=== PATIENT | female | born 1945 | race Caucasian/White ===

== ENCOUNTER 2017-07-06 09:15 | Inpatient (IN) | payer MEDICARE ==
[2017-07-06 09:08] VITALS: BMI 36.6
--- NOTE | 2017-07-07 12:53 | HP ---
DATE OF ADMISSION: 07/12/2017 HISTORY OF PRESENT ILLNESS: The patient is a 71-year-old female with a long history of progressive degenerative arthritis of both knees, right greater than left, unresponsive to conservative treatmen t including rest, restriction of activities, anti-inflammatory medications, cortisone injections, an d also viscosupplementation. The pain is now interfering with day-to-day activities, especially the right knee. PAST MEDICAL HISTORY: The patient has a history of hypertension, reflux, and pain management. She has obtained medical clearance from Dr. Giles and also cardiac clearance from Dr. Staton. PRESENT MEDICATIONS: Include hydrocodone, Flexeril, omeprazole, Pravachol, gabapentin, and multivit amins. ALLERGIES: She is allergic to PENICILLIN. FAMILY HISTORY/SOCIAL HISTORY/REVIEW OF SYSTEMS: Essentially otherwise unremarkable. She lives by herself. PHYSICAL EXAMINATION: GENERAL: Reveals a healthy, elderly, heavyset female. HEENT: Unremarkable. NECK: Supple. CHEST: Clear. HEART: Regular rate and rhythm. ABDOMEN: Soft, nontender. PELVIC/RECTAL/BREAST: Exams are deferred. EXTREMITIES: Pertinent findings related to her knees. Examination of the right knee reveals mild v algus. There is tenderness and crepitus over the lateral joint line. Range of motion is 3-115 degr ees. There is crepitus with range of motion. There is no instability. No venous varicosities. Ne urovascular exam is intact. Pulses are 2+. Examination of her left knee reveals mild varus. There is tenderness and crepitus over the medial joint line. Range of motion is 0-120 degrees with no in stability. Neurovascular exam is intact. LABORATORY AND X-RAY FINDINGS: X-rays of both knees reveal bone on bone collapse laterally in the r ight knee and bone on bone collapse medially in the left knee. IMPRESSION: Degenerative arthritis, both knees, right symptomatic more than left. PLAN: Right total knee replacement. She may ultimately require a stage left total knee replacement . The nature of the surgery, length of recovery, and potential complications such as infection, los s of motion, incomplete relief, delayed wound healing, neurovascular injury, thromboembolic phenomen on, and the need for revision have been discussed in detail. The patient is a [employer] and refuses all transfusion of blood products.
[2017-07-12] MEDS ORDERED: Tranexamic Acid 1,000 MG/100 ML BAG ONE ×2 (06:07→09:37)
[2017-07-12] MEDS ORDERED: Levofloxacin 500 mg/D5W 100 ml Premix Bag ONE (06:07)
[2017-07-12] MEDS ORDERED: Vancomycin HCl 1.5 GM in Sodium Chloride 0.9% 250 ML 300 ML IVPB SCH ×2 (06:15→19:00)
[2017-07-12] MEDS ORDERED: Ropivacaine 0.2% HCl/PF 20 ML ONE ×2 (06:22→06:23)
[2017-07-12] MEDS ORDERED: Midazolam HCl 2 mg/2 ml Vial ONE (06:22)
[2017-07-12] MEDS ORDERED: Fentanyl 100 MCG/2 ML VIAL ONE ×4 (06:22→10:01)
[2017-07-12] MEDS ORDERED: Bupivacaine 0.25% HCL 30 ML VIAL ONE (06:45)
[2017-07-12] MEDS ORDERED: Lidocaine 1% w/Epinephrine 1:200K 30 ML VIAL ONE (06:45)
[2017-07-12] MEDS ORDERED: HYDROcodone/Acetaminophen 10/325 mg Tablet PO PRN ×4 (07:20→12:21)
[2017-07-12] MEDS ORDERED: Ropivacaine HCl/PF 250 ML in Premix Bag 1 BAG NERVE BLCK SCH (07:20)
[2017-07-12] MEDS ORDERED: Zolpidem Tartrate 5 MG TAB PO PRN ×3 (07:20→12:21)
[2017-07-12] MEDS ORDERED: Promethazine HCl 25 MG/ML VIAL IM PRN ×3 (07:20→10:10)
[2017-07-12] MEDS ORDERED: traMADol HCl 50 MG TAB PO PRN ×3 (07:20→12:21)
[2017-07-12] MEDS ORDERED: Ondansetron HCl/PF 4 MG/2 ML Vial IVP PRN ×4 (07:20→12:21)
[2017-07-12] MEDS ORDERED: Fentanyl 100 MCG/2 ML VIAL IV PRN (07:22)
[2017-07-12] MEDS ORDERED: PHENYLEPHRINE-NS 100 MCG/ML 10 ML SYRINGE ONE (07:36)
[2017-07-12] MEDS ORDERED: Propofol 200 MG/20 ML VIAL ONE (07:36)
[2017-07-12] MEDS ORDERED: Ondansetron HCl/PF 4 MG/2 ML Vial ONE (07:36)
[2017-07-12] MEDS ORDERED: Ketorolac Tromethamine 30 MG/ML VIAL ONE (07:36)
[2017-07-12] MEDS ORDERED: Lidocaine 2% MPF 10 ML AMP (For Epidural Use) ONE (07:36)
[2017-07-12] MEDS ORDERED: Promethazine HCl 25 MG/ML VIAL SLOW IVP PRN ×2 (07:49→12:21)
[2017-07-12] MEDS ORDERED: Tranexamic Acid 1,000 MG in Sodium Chloride 0.9% 100 ML IVPB SCH ×2 (09:30→12:21)
[2017-07-12] MEDS ORDERED: diphenhydrAMINE 50 MG/ML VIAL IM PRN (10:10)
[2017-07-12] MEDS ORDERED: Naloxone HCl 0.4 mg/ml Vial IV PRN (10:10)
[2017-07-12] MEDS ORDERED: Fentanyl 5000 MCG/250 ML CADD IVPB PRN (10:10)
[2017-07-12] MEDS ORDERED: diphenhydrAMINE 50 MG/ML VIAL IVP PRN (10:10)
[2017-07-12] MEDS ORDERED: diphenhydrAMINE 25 MG CAP PO PRN ×2 (10:10→12:21)
[2017-07-12] MEDS ORDERED: Communication Order-Pharmacy FS SCH (10:15)
--- NOTE | 2017-07-12 11:31 | RAD ---
RIGHT KNEE 2 VIEWS: Date: 07/12/17 HISTORY: Total knee replacement, postop exam. FINDINGS/IMPRESSION: Recent postop changes of total knee arthroplasty in good position and alignment. Soft tissue air is present. POS: BURT
--- NOTE | 2017-07-12 11:51 | OP ---
DATE OF PROCEDURE: 07/12/2017 SURGEON: Gui Pearce M.D. SVP RESEARCH AND STRATEGIC ANALYSIS: Anjel Altamirano PA-C. ANESTHESIA: General plus femoral and sciatic nerve blocks. PREOPERATIVE DIAGNOSIS: Degenerative arthritis, right knee. POSTOPERATIVE DIAGNOSIS: Degenerative arthritis, right knee. PROCEDURES: Right total knee replacement with cemented Triathlon components with computer assisted navigation. NARRATIVE REPORT: After satisfactory anesthesia was induced in supine position, sequential compress ion device was placed on the non-operative leg throughout the procedure. The right leg was prepped and draped in the routine manner. Right leg was elevated, exsanguinated with an Esmarch bandage, an d the tourniquet inflated to 300 mmHg. A gently curved medial parapatellar incision was made and ca rried down through subcutaneous tissues, and bleeding points controlled with cautery. Medial parapa tellar arthrotomy was performed. Patella was dislocated laterally and portions of the fat pad were excised for exposure. There was marked degenerative arthritis of the knee, especially laterally wit h large areas of exposed bone. Meniscal remnants and osteophytes were removed. Using the Vericantess navigation system and the appropriate guides, the distal femoral and proximal tibial articula r surfaces were excised with an oscillating saw to accept the trial components. The popliteus tendo n was released to relax lateral structures because of the valgus deformity. It was felt that #4 fem oral component and #5 tibial baseplate with 9 mm CS plastic insert gave appropriate size, fit, stabi lity, and correction of the preoperative deformity. The patellar articular surface was excised to a ccept an all plastic A29 patellar component. There was good patellar tracking. The trial component s were removed. The posterior capsule and subcutaneous tissues were injected with mixture of 0.25% plain Marcaine and 1% lidocaine with epinephrine. The knee was copiously irrigated with pulsatile l avage and bony surfaces thoroughly cleaned and dried. The permanent components were then cemented i n a single stage using 1 package of cement premixed with 1 gram of tobramycin powder. Excess cement was removed. There was again good fit and stability of the components. The knee was again copious ly irrigated. The medial retinaculum and quadriceps mechanism was closed with interrupted #2 Vicryl and a running #2 Quill. Subcutaneous tissues were closed with running 0 Quill suture and the skin closed with running subcuticular 3-0 Monoderm and SurgiSeal skin adhesive. A sterile bulky compress bertha dressing was applied and the tourniquet deflated after 73 minutes. The foot promptly pinked up. Sequential compression device was applied to the operated leg. She was awakened and taken to [facility] very room in stable condition. There were no apparent intraoperative complications. The estimated blood loss was less than 100 mL.
[2017-07-12] MEDS ORDERED: Acetaminophen 325 MG TAB PO PRN (12:21)
[2017-07-12] MEDS ORDERED: Fentanyl 100 MCG/2 ML VIAL SLOW IVP PRN ×2 (12:21)
[2017-07-12] MEDS: Ketorolac Tromethamine 30 MG/ML VIAL IVP SCH ×3 (13:04→23:54)
[2017-07-12] MEDS ORDERED: Ketorolac Tromethamine 30 MG/ML VIAL IVP SCH (14:00)
--- NOTE | 2017-07-12 14:06 | PDOC.PN ---
- Subjective Encounter Start Date: 07/12/17 Encounter Start Time: 14:05 Patient seen and examined. Previous records reviewed. Consult for med mngt. Pain controlled. - Objective MAR Reviewed: Yes Vital Signs & Weight: Weight Weight 220 lb Result Diagrams: 07/13/17 04:42 EKG Reviewed by me: Yes (SR) Phys Exam - Physical Examination Constitutional: NAD Respiratory: no wheezing, no rhonchi Cardiovascular: RRR, no rub Gastrointestinal: soft, non-tender, positive bowel sounds Musculoskeletal: no edema Neurological: non-focal, moves all 4 limbs Psychiatric: A&O x 3 Dx/Plan (1) HLD (hyperlipidemia) Code(s): E78.5 - HYPERLIPIDEMIA, UNSPECIFIED Status: Chronic (2) CKD (chronic kidney disease) stage 2, GFR 60-89 ml/min Code(s): N18.2 - CHRONIC KIDNEY DISEASE, STAGE 2 (MILD) Status: Chronic (3) Obesity (BMI 30-39.9) Code(s): E66.9 - OBESITY, UNSPECIFIED Status: Chronic (4) Rheumatoid arthritis Code(s): M06.9 - RHEUMATOID ARTHRITIS, UNSPECIFIED Status: Chronic (5) HTN (hypertension) Code(s): I10 - ESSENTIAL (PRIMARY) HYPERTENSION Status: Chronic (6) GERD (gastroesophageal reflux disease) Code(s): K21.9 - GASTRO-ESOPHAGEAL REFLUX DISEASE WITHOUT ESOPHAGITIS Status: Chronic - Plan cont current plan of care, DVT proph w/SCDs (per joint protocol with [facility]) * Cont current meds as below including Gabapentin/Statins and PPI * Cont to monitor * Will follow. Thank you for this consultation. Full code. Makes her own decisions with the help of her family. Review of Systems - Review of Systems Respiratory: negative: Cough, Dry, Shortness of Breath, Hemoptysis, SOB with Excertion, Pleuritic Pain, Sputum, Wheezing Cardiovascular: negative: Chest Pain, Palpitations, Orthopnea, Paroxysmal Noc. Dyspnea, Edema, Light Headedness, Other Gastrointestinal: negative: Nausea, Vomiting, Abdominal Pain, Diarrhea, Constipation, Melena, Hematochezia, Other Genitourinary: negative: Dysuria, Frequency, Incontinence, Hematuria, Retention , Other - Medications/Allergies Allergies/Adverse Reactions: Allergies Allergy/AdvReac Type Severity Reaction Status Date / Time Penicillins Allergy Verified 07/06/17 09:09 Medications: Current Medications Acetaminophen (Tylenol) 650 mg PO Q4H PRN PRN Reason: TAMAYO/ T > 101F; Mild Pain (1-3) Hydrocodone Bitart/Acetaminophen ([place] 10/325) 1 tab PO Q4H PRN PRN Reason: Moderate Pain (4-6) Hydrocodone Bitart/Acetaminophen ([place] 10/325) 2 tab PO Q4H PRN PRN Reason: Severe Pain (7-10) Aspirin (Aspirin Chewable) 81 mg PO BID [facility] Cholecalciferol (Vitamin D3) 1,000 units PO DAILY [facility] Diphenhydramine HCl (Benadryl) 25 mg IVP Q3H PRN PRN Reason: Itching Diphenhydramine HCl (Benadryl) 25 mg PO Q3H PRN PRN Reason: Itching Diphenhydramine HCl (Benadryl) 25 mg IM Q3H PRN PRN Reason: Itching Diphenhydramine HCl (Benadryl) 25 mg PO Q6H PRN PRN Reason: Itching Fentanyl (Fentanyl Cadd) 0 mcg IVPB INF PRN PRN Reason: Pain Fentanyl (Sublimaze) 50 mcg SLOW IVP Q30MIN PRN PRN Reason: Moderate Pain (4-6) Fentanyl (Sublimaze) 100 mcg SLOW IVP Q1H PRN PRN Reason: Severe Pain (7-10) Ferrous Gluconate (Fergon) 324 mg PO BID [facility] Fish Oil (Fish Oil) 1,000 mg PO DAILY [facility] Folic Acid (Folvite) 1 mg PO DAILY [facility] Gabapentin (Neurontin) 600 mg PO TID [facility] Ropivacaine 250 ml/ Device 250 mls @ 10 mls/hr NERVE BLCK INF [facility] Levofloxacin 500 mg/ Device 100 mls @ 100 mls/hr IVPB 0800 [facility] Stop: 07/13/17 10:00 Sodium Chloride (Normal Saline 0.9%) 1,000 mls @ 100 mls/hr IV .Q10H [facility] Vancomycin HCl 1.5 gm/ Sodium (Chloride) 300 mls @ 200 mls/hr IVPB 1900 [facility] Stop: 07/12/17 21:00 Iron/Minerals/Multivitamins (Theragran M) 1 tab PO DAILY [facility] Ketorolac Tromethamine (Toradol) 15 mg IVP Q6HR [facility] Stop: 07/14/17 06:01 Last Admin: 07/12/17 13:04 Dose: 15 mg Ketorolac Tromethamine (Toradol) 15 mg IVP Q8HR [facility] Stop: 07/14/17 14:01 Naloxone HCl (Narcan) 0.2 mg IV Q5MIN PRN PRN Reason: Opiate Reversal Ondansetron HCl (Zofran) 4 mg IVP Q6H PRN PRN Reason: Nausea/Vomiting Last Admin: 07/12/17 13:05 Dose: 4 mg Ondansetron HCl (Zofran) 4 mg IVP Q6H PRN PRN Reason: Nausea/Vomiting Ondansetron HCl (Zofran) 4 mg IVP Q6H PRN PRN Reason: Nausea/Vomiting Pantoprazole Sodium (Protonix) 40 mg PO DAILY [facility] Promethazine HCl (Phenergan) 12.5 mg IM Q4H PRN PRN Reason: Nausea Promethazine HCl (Phenergan) 12.5 mg IM Q4H PRN PRN Reason: Nausea/Vomiting Promethazine HCl (Phenergan) 12.5 mg SLOW IVP Q4H PRN PRN Reason: Nausea/Vomiting Senna/Docusate Sodium (Senokot S) 2 tab PO BID [facility] Sodium Chloride (Flush - Normal Saline) 10 ml IVF PRN PRN PRN Reason: Saline Flush Tramadol HCl (Ultram) 100 mg PO Q6H PRN PRN Reason: Mild Pain (1-3) Zolpidem Tartrate (Ambien) 5 mg PO HSPRN PRN PRN Reason: Insomnia Zolpidem Tartrate (Ambien) 5 mg PO HSPRN PRN PRN Reason: Insomnia
[2017-07-12] MEDS: Sodium Chloride 0.9% 1,000 ML IV SCH ×2 (14:11→22:20)
[2017-07-12] MEDS ORDERED: Ropivacaine 0.5% HCl/PF (150 MG/30 ML VIAL) ONE (14:14)
[2017-07-12] MEDS: Gabapentin 300 MG CAP PO SCH ×2 (16:41→20:25)
[2017-07-13 05:40] LABS: Red Blood Cell (RBC) Count 3.67 mill/uL (4.20-5.40); White Blood Cell (WBC) Count 7.9 thou/uL (4.8-10.8)
[2017-07-13] MEDS: Ketorolac Tromethamine 30 MG/ML VIAL IVP SCH ×4 (06:16→23:59)
[2017-07-13] MEDS: Sodium Chloride 0.9% 1,000 ML IV SCH ×2 (08:30→20:30)
[2017-07-13] MEDS: Folic Acid 1 MG TAB PO SCH (08:50)
[2017-07-13] MEDS: Ferrous Gluconate 324 MG TAB PO SCH ×2 (08:51→20:29)
[2017-07-13] MEDS: Fish Oil 1,000 MG CAP PO SCH (08:52)
[2017-07-13] MEDS: Senokot S 8.6-50 MG TAB PO SCH ×2 (08:53→20:29)
[2017-07-13] MEDS: Gabapentin 300 MG CAP PO SCH ×3 (08:54→20:29)
[2017-07-13] MEDS: Pravastatin Sodium 20 MG TAB PO SCH (08:55)
[2017-07-13] MEDS: Multivitamin W/ Minerals 1 TAB PO SCH ×2 (09:39→09:40)
--- NOTE | 2017-07-13 11:21 | PDOC.PN ---
- Subjective Encounter Start Date: 07/13/17 Encounter Start Time: 07:30 -: old records requested/rev Patient seen and examined. No new complaints. No overnight events - Objective MAR Reviewed: Yes Vital Signs & Weight: Vital Signs (12 hours) Temp Pulse Resp BP Pulse Ox 07/13/17 08:40 100.0 F H 106 H 20 115/70 97 07/13/17 04:22 104 H 22 H 100 07/12/17 23:51 99.7 F H 116 H 18 148/68 H 91 L Weight Weight 220 lb I&O: 07/12/17 07/13/17 07/14/17 06:59 06:59 06:59 Intake Total 1959 Output Total 2049 Balance -90 Result Diagrams: 07/13/17 04:42 Phys Exam - Physical Examination Constitutional: NAD HEENT: PERRLA, moist MMs, sclera anicteric Neck: no JVD, supple Respiratory: no wheezing, no rales, no rhonchi Cardiovascular: RRR, no significant murmur, no rub Gastrointestinal: soft, non-tender, no distention, positive bowel sounds Musculoskeletal: no edema, pulses present right knee with dressing Neurological: non-focal, normal sensation Psychiatric: normal affect, A&O x 3 Skin: no rash, normal turgor Dx/Plan (1) Postoperative anemia due to acute blood loss Code(s): D62 - ACUTE POSTHEMORRHAGIC ANEMIA Status: Acute (2) Status post total right knee replacement Code(s): Z96.651 - PRESENCE OF RIGHT ARTIFICIAL KNEE JOINT Status: Acute (3) CKD (chronic kidney disease) stage 2, GFR 60-89 ml/min Code(s): N18.2 - CHRONIC KIDNEY DISEASE, STAGE 2 (MILD) Status: Chronic (4) GERD (gastroesophageal reflux disease) Code(s): K21.9 - GASTRO-ESOPHAGEAL REFLUX DISEASE WITHOUT ESOPHAGITIS Status: Chronic (5) HLD (hyperlipidemia) Code(s): E78.5 - HYPERLIPIDEMIA, UNSPECIFIED Status: Chronic (6) HTN (hypertension) Code(s): I10 - ESSENTIAL (PRIMARY) HYPERTENSION Status: Chronic (7) Obesity (BMI 30-39.9) Code(s): E66.9 - OBESITY, UNSPECIFIED Status: Chronic (8) Rheumatoid arthritis Code(s): M06.9 - RHEUMATOID ARTHRITIS, UNSPECIFIED Status: Chronic - Plan cont current plan of care, PT/OT, hospice social worker * continue aspirin for DVT prophylaxis * continue protonix for GI prophylaxis * continue iron * nerve block as per anesthesia * pain controlled with current pain meds * home medication reconciled * medication reviewed as below * symptomatic treatment * PT/OT as per [facility] protocol * code status- Full code. Review of Systems - Review of Systems ENT: negative: Ear Pain, Ear Discharge, Nose Pain, Nose Discharge, Nose Congestion, Mouth Pain, Mouth Swelling, Throat Pain, Throat Swelling, Other Respiratory: negative: Cough, Dry, Shortness of Breath, Hemoptysis, SOB with Excertion, Pleuritic Pain, Sputum, Wheezing Cardiovascular: negative: Chest Pain, Palpitations, Orthopnea, Paroxysmal Noc. Dyspnea, Edema, Light Headedness, Other Gastrointestinal: negative: Nausea, Vomiting, Abdominal Pain, Diarrhea, Constipation, Melena, Hematochezia, Other Genitourinary: negative: Dysuria, Frequency, Incontinence, Hematuria, Retention , Other Musculoskeletal: negative: Neck Pain, Shoulder Pain, Arm Pain, Back Pain, Hand Pain, Leg Pain, Foot Pain, Other Skin: negative: Rash, Lesions, Wing, Bruising, Other - Medications/Allergies Allergies/Adverse Reactions: Allergies Allergy/AdvReac Type Severity Reaction Status Date / Time Penicillins Allergy Verified 07/06/17 09:09 Medications: Current Medications Acetaminophen (Tylenol) 650 mg PO Q4H PRN PRN Reason: TAMAYO/ T > 101F; Mild Pain (1-3) Hydrocodone Bitart/Acetaminophen ([place] 10/325) 1 tab PO Q4H PRN PRN Reason: Moderate Pain (4-6) Hydrocodone Bitart/Acetaminophen ([place] 10/325) 2 tab PO Q4H PRN PRN Reason: Severe Pain (7-10) Aspirin (Aspirin Chewable) 81 mg PO BID [facility] Last Admin: 07/13/17 08:56 Dose: 81 mg Cholecalciferol (Vitamin D3) 1,000 units PO DAILY [facility] Last Admin: 07/13/17 08:54 Dose: 1,000 units Diphenhydramine HCl (Benadryl) 25 mg IVP Q3H PRN PRN Reason: Itching Diphenhydramine HCl (Benadryl) 25 mg PO Q3H PRN PRN Reason: Itching Diphenhydramine HCl (Benadryl) 25 mg IM Q3H PRN PRN Reason: Itching Diphenhydramine HCl (Benadryl) 25 mg PO Q6H PRN PRN Reason: Itching Fentanyl (Fentanyl Cadd) 0 mcg IVPB INF PRN PRN Reason: Pain Fentanyl (Sublimaze) 50 mcg SLOW IVP Q30MIN PRN PRN Reason: Moderate Pain (4-6) Fentanyl (Sublimaze) 100 mcg SLOW IVP Q1H PRN PRN Reason: Severe Pain (7-10) Ferrous Gluconate (Fergon) 324 mg PO BID [facility] Last Admin: 07/13/17 08:51 Dose: 324 mg Fish Oil (Fish Oil) 1,000 mg PO DAILY [facility] Last Admin: 07/13/17 08:52 Dose: 1,000 mg Folic Acid (Folvite) 1 mg PO DAILY [facility] Last Admin: 07/13/17 08:50 Dose: 1 mg Gabapentin (Neurontin) 600 mg PO TID [facility] Last Admin: 07/13/17 08:54 Dose: 600 mg Ropivacaine 250 ml/ Device 250 mls @ 10 mls/hr NERVE BLCK INF [facility] Last Admin: 07/13/17 10:46 Dose: 250 mls Sodium Chloride (Normal Saline 0.9%) 1,000 mls @ 100 mls/hr IV .Q10H [facility] Last Admin: 07/13/17 08:30 Dose: 1,000 mls Iron/Minerals/Multivitamins (Theragran M) 1 tab PO DAILY [facility] Last Admin: 07/13/17 09:40 Dose: 1 tab Ketorolac Tromethamine (Toradol) 15 mg IVP Q6HR [facility] Stop: 07/14/17 06:01 Last Admin: 07/13/17 06:16 Dose: 15 mg Naloxone HCl (Narcan) 0.2 mg IV Q5MIN PRN PRN Reason: Opiate Reversal Ondansetron HCl (Zofran) 4 mg IVP Q6H PRN PRN Reason: Nausea/Vomiting Pantoprazole Sodium (Protonix) 40 mg PO DAILY [facility] Last Admin: 07/13/17 08:56 Dose: 40 mg Pravastatin Sodium (Pravachol) 10 mg PO DAILY [facility] Last Admin: 07/13/17 08:55 Dose: 10 mg Promethazine HCl (Phenergan) 12.5 mg IM Q4H PRN PRN Reason: Nausea/Vomiting Promethazine HCl (Phenergan) 12.5 mg SLOW IVP Q4H PRN PRN Reason: Nausea/Vomiting Senna/Docusate Sodium (Senokot S) 2 tab PO BID [facility] Last Admin: 07/13/17 08:53 Dose: 2 tab Sodium Chloride (Flush - Normal Saline) 10 ml IVF PRN PRN PRN Reason: Saline Flush Tramadol HCl (Ultram) 100 mg PO Q6H PRN PRN Reason: Mild Pain (1-3) Zolpidem Tartrate (Ambien) 5 mg PO HSPRN PRN PRN Reason: Insomnia
[2017-07-14] MEDS: Ketorolac Tromethamine 30 MG/ML VIAL IVP SCH (05:07)
[2017-07-14] MEDS: Sodium Chloride 0.9% 1,000 ML IV SCH (05:08)
--- NOTE | 2017-07-14 07:43 | PDOC.PN ---
- Subjective Encounter Start Date: 07/14/17 Encounter Start Time: 07:41 Patient seen and examined. No new complaints. No overnight events - Objective Resuscitation Status: Resuscitation Status FULL:Full Resuscitation MAR Reviewed: Yes Vital Signs & Weight: Vital Signs (12 hours) Temp Pulse Resp BP BP Pulse Ox 07/14/17 04:00 98.7 F 96 16 140/82 98 07/14/17 00:00 98.8 F 104 H 14 133/67 133/67 100 07/13/17 20:25 99.2 F 99 16 143/72 H 93 L Weight Admit Weight 220 lb Weight 220 lb I&O: 07/13/17 07/14/17 07/15/17 06:59 06:59 06:59 Intake Total 19590 Output Total 20490 Balance -90 -865 Result Diagrams: 07/13/17 04:42 Phys Exam - Physical Examination Constitutional: NAD HEENT: PERRLA, moist MMs, sclera anicteric Neck: no JVD, supple Respiratory: no wheezing, no rales, no rhonchi Cardiovascular: RRR, no significant murmur, no rub Gastrointestinal: soft, non-tender, no distention, positive bowel sounds Musculoskeletal: no edema, pulses present right knee with dressing Neurological: non-focal, normal sensation Psychiatric: normal affect, A&O x 3 Skin: no rash, normal turgor Dx/Plan (1) Postoperative anemia due to acute blood loss Code(s): D62 - ACUTE POSTHEMORRHAGIC ANEMIA Status: Acute (2) Status post total right knee replacement Code(s): Z96.651 - PRESENCE OF RIGHT ARTIFICIAL KNEE JOINT Status: Acute (3) CKD (chronic kidney disease) stage 2, GFR 60-89 ml/min Code(s): N18.2 - CHRONIC KIDNEY DISEASE, STAGE 2 (MILD) Status: Chronic (4) GERD (gastroesophageal reflux disease) Code(s): K21.9 - GASTRO-ESOPHAGEAL REFLUX DISEASE WITHOUT ESOPHAGITIS Status: Chronic (5) HLD (hyperlipidemia) Code(s): E78.5 - HYPERLIPIDEMIA, UNSPECIFIED Status: Chronic (6) HTN (hypertension) Code(s): I10 - ESSENTIAL (PRIMARY) HYPERTENSION Status: Chronic (7) Obesity (BMI 30-39.9) Code(s): E66.9 - OBESITY, UNSPECIFIED Status: Chronic (8) Rheumatoid arthritis Code(s): M06.9 - RHEUMATOID ARTHRITIS, UNSPECIFIED Status: Chronic - Plan cont current plan of care, PT/OT, director social * continue aspirin for DVT prophylaxis * continue protonix for GI prophylaxis * continue iron * nerve block as per anesthesia * pain controlled with current pain meds * medication reviewed as below * symptomatic treatment * PT/OT as per [facility] protocol * expecting discharge later today Review of Systems - Review of Systems ENT: negative: Ear Pain, Ear Discharge, Nose Pain, Nose Discharge, Nose Congestion, Mouth Pain, Mouth Swelling, Throat Pain, Throat Swelling, Other Respiratory: negative: Cough, Dry, Shortness of Breath, Hemoptysis, SOB with Excertion, Pleuritic Pain, Sputum, Wheezing Cardiovascular: negative: Chest Pain, Palpitations, Orthopnea, Paroxysmal Noc. Dyspnea, Edema, Light Headedness, Other Gastrointestinal: negative: Nausea, Vomiting, Abdominal Pain, Diarrhea, Constipation, Melena, Hematochezia, Other Genitourinary: negative: Dysuria, Frequency, Incontinence, Hematuria, Retention , Other Musculoskeletal: negative: Neck Pain, Shoulder Pain, Arm Pain, Back Pain, Hand Pain, Leg Pain, Foot Pain, Other - Medications/Allergies Allergies/Adverse Reactions: Allergies Allergy/AdvReac Type Severity Reaction Status Date / Time Penicillins Allergy Verified 07/06/17 09:09 Medications: Current Medications Acetaminophen (Tylenol) 650 mg PO Q4H PRN PRN Reason: TAMAYO/ T > 101F; Mild Pain (1-3) Last Admin: 07/13/17 12:32 Dose: 650 mg Hydrocodone Bitart/Acetaminophen ([place] 10/325) 1 tab PO Q4H PRN PRN Reason: Moderate Pain (4-6) Hydrocodone Bitart/Acetaminophen ([place] 10/325) 2 tab PO Q4H PRN PRN Reason: Severe Pain (7-10) Aspirin (Aspirin Chewable) 81 mg PO BID [facility] Last Admin: 07/13/17 20:29 Dose: 81 mg Cholecalciferol (Vitamin D3) 1,000 units PO DAILY [facility] Last Admin: 07/13/17 08:54 Dose: 1,000 units Diphenhydramine HCl (Benadryl) 25 mg IVP Q3H PRN PRN Reason: Itching Diphenhydramine HCl (Benadryl) 25 mg PO Q3H PRN PRN Reason: Itching Diphenhydramine HCl (Benadryl) 25 mg IM Q3H PRN PRN Reason: Itching Diphenhydramine HCl (Benadryl) 25 mg PO Q6H PRN PRN Reason: Itching Fentanyl (Fentanyl Cadd) 0 mcg IVPB INF PRN PRN Reason: Pain Fentanyl (Sublimaze) 50 mcg SLOW IVP Q30MIN PRN PRN Reason: Moderate Pain (4-6) Fentanyl (Sublimaze) 100 mcg SLOW IVP Q1H PRN PRN Reason: Severe Pain (7-10) Ferrous Gluconate (Fergon) 324 mg PO BID [facility] Last Admin: 07/13/17 20:29 Dose: 324 mg Fish Oil (Fish Oil) 1,000 mg PO DAILY [facility] Last Admin: 07/13/17 08:52 Dose: 1,000 mg Folic Acid (Folvite) 1 mg PO DAILY [facility] Last Admin: 07/13/17 08:50 Dose: 1 mg Gabapentin (Neurontin) 600 mg PO TID [facility] Last Admin: 07/13/17 20:29 Dose: 600 mg Ropivacaine 250 ml/ Device 250 mls @ 10 mls/hr NERVE BLCK INF [facility] Last Admin: 07/13/17 10:46 Dose: 250 mls Sodium Chloride (Normal Saline 0.9%) 1,000 mls @ 100 mls/hr IV .Q10H [facility] Last Admin: 07/14/17 05:08 Dose: Not Given Iron/Minerals/Multivitamins (Theragran M) 1 tab PO DAILY [facility] Last Admin: 07/13/17 09:40 Dose: 1 tab Naloxone HCl (Narcan) 0.2 mg IV Q5MIN PRN PRN Reason: Opiate Reversal Ondansetron HCl (Zofran) 4 mg IVP Q6H PRN PRN Reason: Nausea/Vomiting Pantoprazole Sodium (Protonix) 40 mg PO DAILY [facility] Last Admin: 07/13/17 08:56 Dose: 40 mg Pravastatin Sodium (Pravachol) 10 mg PO DAILY [facility] Last Admin: 07/13/17 08:55 Dose: 10 mg Promethazine HCl (Phenergan) 12.5 mg IM Q4H PRN PRN Reason: Nausea/Vomiting Promethazine HCl (Phenergan) 12.5 mg SLOW IVP Q4H PRN PRN Reason: Nausea/Vomiting Senna/Docusate Sodium (Senokot S) 2 tab PO BID [facility] Last Admin: 07/13/17 20:29 Dose: 2 tab Sodium Chloride (Flush - Normal Saline) 10 ml IVF PRN PRN PRN Reason: Saline Flush Tramadol HCl (Ultram) 100 mg PO Q6H PRN PRN Reason: Mild Pain (1-3) Zolpidem Tartrate (Ambien) 5 mg PO HSPRN PRN PRN Reason: Insomnia
[2017-07-14] MEDS: Gabapentin 300 MG CAP PO SCH (08:05)
[2017-07-14] MEDS: Senokot S 8.6-50 MG TAB PO SCH (08:05)
[2017-07-14] MEDS: Pravastatin Sodium 20 MG TAB PO SCH (08:06)
[2017-07-14] MEDS: Ferrous Gluconate 324 MG TAB PO SCH (08:08)
[2017-07-14] MEDS: Multivitamin W/ Minerals 1 TAB PO SCH (08:09)
[2017-07-14] MEDS: Folic Acid 1 MG TAB PO SCH (08:10)
[2017-07-14 08:32] VITALS: BP 138/78; TEMP 99
--- NOTE | 2017-07-14 10:21 | DIS ---
DATE OF ADMISSION: 07/12/2017 DATE OF DISCHARGE: 07/14/2017 PRIMARY CARE PHYSICIAN: Dr. LUIS ABAD. DISCHARGE DISPOSITION: Home. PRIMARY DISCHARGE DIAGNOSES: Postoperative anemia due to acute blood loss, status post right total k nee replacement. SECONDARY DISCHARGE DIAGNOSES: Chronic kidney disease stage 2, gastroesophageal reflux disease, dysl ipidemia, hypertension, obesity with BMI 36, rheumatoid arthritis. PRIMARY PROCEDURE/OPERATION: Right total knee replacement. RADIOLOGICAL INVESTIGATION: Knee x-ray. SIGNIFICANT LABORATORY DATA: Hemoglobin 10.9. DISCHARGE MEDICATIONS: Benadryl 25 mg 1 or 2 tablets p.o. b.i.d. p.r.n., vitamin E 400 units p.o. da [place], coenzyme Q10 100 mg p.o. daily, pravastatin 10 mg p.o. daily, omeprazole 40 mg p.o. daily, multi vitamin 1 tablet p.o. daily, [place] 10 one tablet q.6 hours p.r.n., garlic one tablet daily, gabapenti n 600 mg t.i.d., folic acid 1 mg p.o. daily, fish oil 1000 mg p.o. daily, Flexeril 10 mg p.o. at [facility], vitamin D3 1000 units p.o. daily, aspirin 81 mg p.o. b.i.d. for DVT prophylaxis, ferrous glucona te 324 mg p.o. b.i.d. CONTRAINDICATIONS: None. CODE STATUS: FULL CODE. INPATIENT CONSULTANTS: Dr. Pearce was primary while in hospital. [facility] team was consulted for medica l comanagement. ALLERGIES: PENICILLIN. DISCHARGE PLAN: Post hospital, the patient will follow up with Dr. Pearce on 07/27/2017 at 10:00 a.m. The patient will make appointment with primary care physician in 1 week. HOSPITAL COURSE: A 71-year-old female with above-mentioned medical problem who was admitted by Dr. Donna schwartz for elective admission for right total knee replacement, which was done on 07/12/2017. [facility], [facility] team was consulted for medical comanagement. The patient's medica l problems remained stable. The patient did very well while in hospital per [facility] protoco l treatment. The patient is planned for discharge today. She was given aspirin for DVT prophylaxis. Her pain was controlled with oral pain medications. She had mild postoperative blood loss anemia t hat remained stable. This patient is Jehovah witness. The patient is advised to take iron supplementation after discharge . The patient is seen and examined at bedside today. Please see my progress note from today for furthe r details. We will sign off.
[2017-07-14] MEDS ORDERED: Insulin Regular 300 UNITS/3 ML VIAL IVP SCH (12:45)
[2017-07-14] MEDS: Fish Oil 1,000 MG CAP PO SCH (13:05)
== END 2017-07-14 10:00 | disposition swing bed (61) | DRG 470 ==
LOC: SURG A 07-12 05:28 → SJJU 07-12 10:59
PROVIDERS: ADMIT Orthopaedic Surgery; ATTEND Orthopaedic Surgery
PROC: 0SRC0J9 Replacement of Right Knee Joint with Synthetic Substitute, Cemented, Open Approach (ICD-10-PCS; principal; 2017-07-12)
PROC: 3E0T3BZ Introduction of Anesthetic Agent into Peripheral Nerves and Plexi, Percutaneous Approach (ICD-10-PCS; 2017-07-12)
DX: M17.0 Bilateral primary osteoarthritis of knee (principal); D62 Acute posthemorrhagic anemia; M06.9 Rheumatoid arthritis, unspecified; I12.9 Hypertensive chronic kidney disease with stage 1 through stage 4 chronic kidney disease, or unspecified chronic kidney disease; Z88.0 Allergy status to penicillin; N18.2 Chronic kidney disease, stage 2 (mild); K21.9 Gastro-esophageal reflux disease without esophagitis; E78.5 Hyperlipidemia, unspecified; E66.9 Obesity, unspecified; Z68.36 Body mass index [BMI] 36.0-36.9, adult
CPT/HCPCS: 36415; 85027; C1713; C1776; G8978-GP-CK; G8979-GP-CJ; J1885; J1956; J2001; J2250; J2405; J2704; J2795; J3010; J3370; J7050; S0020

== ENCOUNTER 2018-01-27 12:11 | Outpatient (CLI) | payer MEDICARE ==
[2018-01-27 13:13] LABS: #Eosinphils 0.3 thou/uL (0.0-0.7); #Lymphocytes 2.2 thou/uL (1.20-3.40); #Monocytes 0.6 thou/uL (0.11-0.59); #Neutrophils 5.6 thou/uL (1.40-6.50); %Basophils 0.3 % (0.0-1.0); %Eosinophils 3.3 % (0.0-10.0); %Lymphocytes 24.9 % (21.0-51.0); %Monocytes 7.2 % (0.0-10.0); %Neutrophils 64.4 % (42.0-75.0); Hemoglobin 11.8 g/dL (12.0-16.0); Mean Corpuscular HGB CONC 33.3 g/dL (32.0-36.0); Mean Corpuscular Hemoglobin 30.3 pg (27.0-31.0); Mean Corpuscular Volume 91.1 fl (81.0-99.0); Mean Platelet Volume 5.4 fL (7.4-10.4); Platelet Count 227 thou/uL (130-400); RBC Distribution Width 12.6 % (11.5-14.5); Red Blood Cell (RBC) Count 3.91 mill/uL (4.20-5.40); White Blood Cell (WBC) Count 8.7 thou/uL (4.8-10.8)
[2018-01-27 13:20] LABS: INR-International Normal Ratio 1.1; Prothrombin Time 14.1 SEC (12.0-14.7)
[2018-01-27 13:38] LABS: Anion Gap 12 mmol/L (10-20); BUN (Urea Nitrogen) 19 mg/dL (9.8-20.1); Calc. Creatinine Clearance 0 mL/min (70-130); Calcium 9.2 mg/dL (7.8-10.44); Carbon Dioxide 25 mmol/L (23-31); Chloride 101 mmol/L (98-107); Estimated GFR-MDRD 59; Glucose 93 mg/dL (83-110); Potassium 4.6 mmol/L (3.5-5.1); Sodium 133 mmol/L (136-145)
[2018-01-27 13:48] LABS: Bilirubin Negative (Negative); Blood, Urine Negative (Negative); Clarity CLEAR (Clear); Glucose, Urine (Dipstick) Negative (Negative); Leukocyte Trace (Negative); Nitrite Negative (Negative); Protein, Urine (Dipstick) Negative (Neg-Trace); Specific Gravity, Urine 1.013 (1.002-1.036); Urobilinogen 0.2 mg/dL (0.2-1.0)
[2018-01-27 14:13] LABS: Bacteria/HPF None Seen HPF (None Seen); Hyaline Casts/LPF 0-3 HYALINE CAST LPF (0-3 Hyaline); Pathc Cast-AUWi Flag 0.87 (0-2.49); RBC/HPF 0-3 HPF (0-3); Squamous Epithelial 0-3 HPF (0-3); WBC/HPF 0-3 HPF (0-3)
== END 2018-01-27 12:12 | disposition home or self-care (01) ==
LOC: LABBT 12:11
PROVIDERS: ATTEND Orthopaedic Surgery
DX: Z01.818 Encounter for other preprocedural examination (principal); M17.12 Unilateral primary osteoarthritis, left knee
CPT/HCPCS: 80048; 81001; 85025; 85610; 87081; 87086; 93005; 93010

== ENCOUNTER 2018-02-07 06:09 | Inpatient (IN) | payer MEDICARE ==
[2018-01-27 13:01] VITALS: BMI 35.7
--- NOTE | 2018-02-03 19:32 | HP ---
HISTORY OF PRESENT ILLNESS: The patient is a 72-year-old female with a long history of progressive d egenerative arthritis of both knees, unresponsive to conservative treatment including rest, restricti on of activities, anti-inflammatory medications, and several injections. She underwent right total k nee replacement in 06/2017 with good results, but continues to have progressive problems with the lef t knee. PAST MEDICAL HISTORY: The patient is, otherwise, in good health. 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 CURRENT MEDICATIONS: Include multivitamins, Pravachol, Prilosec, gabapentin, Flexeril, [place] 10. ALLERGIES: She is allergic to PENICILLIN. The patient is a Worship and absolutely refuses any type of blood transfusion or blood prod ucts under any condition. FAMILY HISTORY, SOCIAL HISTORY, AND REVIEW OF SYSTEMS: Otherwise unremarkable. PHYSICAL EXAMINATION: GENERAL: Reveals a healthy, elderly, heavyset female. HEENT: Unremarkable. NECK: Supple. CHEST: Clear. HEART: Regular rate and rhythm. ABDOMEN: Soft, nontender. PELVIC/RECTAL/BREAST: Exams are deferred. EXTREMITIES: Pertinent findings related to the left knee, there is . There is mild varus. The re is tenderness and crepitus over the medial joint line. Range of motion is 5-120 degrees. There i s no instability. Neurovascular exam is intact. Pulses are 1+. There is a left antalgic gait. LABORATORY AND X-RAY FINDINGS: X-rays of the left knee reveal [id number] collapse medially. IMPRESSION: 1. Degenerative arthritis, left knee. 2. Status post right total knee replacement. 3. History of hypertension. 4. History of reflux. 5. Worship. PLAN: Left total knee replacement. The nature of the surgery, length of recovery, and potential com plications such as infection, loss of motion, incomplete relief, delayed wound healing, neurovascular injury, thromboembolic phenomenon, and need for revision have been discussed in detail.
[2018-02-07] MEDS ORDERED: Sodium Chloride 0.9% 100 ML ONE (07:21)
[2018-02-07] MEDS ORDERED: Levofloxacin 500 mg/D5W 100 ml Premix Bag ONE (07:21)
[2018-02-07] MEDS ORDERED: Midazolam HCl 2 mg/2 ml Vial ONE (07:25)
[2018-02-07] MEDS ORDERED: Ropivacaine 0.5% HCl/PF (150 MG/30 ML VIAL) ONE (07:26)
[2018-02-07] MEDS ORDERED: Fentanyl 100 MCG/2 ML VIAL ONE ×3 (07:26→12:20)
[2018-02-07] MEDS ORDERED: Bupivacaine 0.25% HCL 30 ML VIAL ONE (07:27)
[2018-02-07] MEDS ORDERED: Vancomycin HCl 1.5 GM in Sodium Chloride 0.9% 250 ML 300 ML IVPB SCH ×2 (07:30→20:00)
[2018-02-07] MEDS ORDERED: Ondansetron HCl/PF 4 MG/2 ML Vial IVP PRN ×3 (08:38→12:23)
[2018-02-07] MEDS ORDERED: Promethazine HCl 25 MG/ML VIAL IM PRN ×2 (08:38→10:32)
[2018-02-07] MEDS ORDERED: Zolpidem Tartrate 5 MG TAB PO PRN ×2 (08:38→12:23)
[2018-02-07] MEDS ORDERED: traMADol HCl 50 MG TAB PO PRN ×2 (08:38)
[2018-02-07] MEDS ORDERED: HYDROcodone/Acetaminophen 10/325 mg Tablet PO PRN ×2 (08:38)
[2018-02-07] MEDS ORDERED: Fentanyl 100 MCG/2 ML VIAL IV PRN (08:40)
[2018-02-07] MEDS ORDERED: Bupivacaine/Epinephrine 0.25% 30 ML VIAL ONE (10:21)
[2018-02-07] MEDS ORDERED: Promethazine HCl 25 MG/ML VIAL SLOW IVP PRN ×2 (10:32→12:23)
[2018-02-07] MEDS ORDERED: Tranexamic Acid 1,000 MG in Sodium Chloride 0.9% 100 ML IVPB SCH ×2 (12:00→12:23)
[2018-02-07] MEDS ORDERED: Ketorolac Tromethamine 30 MG/ML VIAL IVP SCH (12:00)
[2018-02-07] MEDS ORDERED: Acetaminophen 325 MG TAB PO PRN (12:23)
[2018-02-07] MEDS ORDERED: Fentanyl 100 MCG/2 ML VIAL SLOW IVP PRN ×2 (12:23)
[2018-02-07] MEDS ORDERED: diphenhydrAMINE 25 MG CAP PO PRN (12:23)
[2018-02-07] MEDS ORDERED: PROPOFOL 200 MG/20 ML VIAL ONE (12:24)
[2018-02-07] MEDS ORDERED: Lidocaine 1% PF 5 ML VIAL ONE (12:24)
[2018-02-07] MEDS ORDERED: Ondansetron HCl/PF 4 MG/2 ML Vial ONE (12:24)
--- NOTE | 2018-02-07 12:32 | OP ---
DATE OF PROCEDURE: 02/07/2018 SURGEON: Gui Pearce M.D. ASSOCIATE SOFTWARE APPLICATION ENGINEER: ARNIE Stafford. ANESTHESIA: General plus femoral site nerve blocks. PREOPERATIVE DIAGNOSIS: Degenerative arthritis, left knee. POSTOPERATIVE DIAGNOSIS: Degenerative arthritis, left knee. PROCEDURES PERFORMED: Left total knee replacement, computer-assisted navigation with cemented Stryke r Triathlon components (#4 femoral component, #4 universal tibial baseplate with 13 mm CS plastic ins ert, and A29 all plastic patellar component). NARRATIVE REPORT: After satisfactory anesthesia was induced in supine position, sequential compressi on device was placed on the non-operative leg throughout the procedure. The left leg was prepped and draped in routine manner and then elevated, exsanguinated with an Esmarch bandage. Tourniquet was i nflated to 300 mmHg. A gently curved medial parapatellar incision was made and carried down to subcu taneous tissues. Bleeding points controlled with cautery. Medial parapatellar arthrotomy performed. Patella dislocated laterally and portions of the fat pad excised for exposure. There was marked de generative arthritis of the knee, especially medially, with large areas of exposed bone. Meniscal re mnants and osteophytes were removed. Using the NEBOTRADE pinless navigation system and the appropriate guides, the distal femoral and proximal tibial articular surfaces were excised with an oscillating s aw to accept the trial components. It was felt that #4 femoral component, #4 tibial baseplate with 1 3 mm CS plastic insert gave appropriate size, fit, stability, and correction of the preoperative defo rmity. The patellar articular surface was excised to accept an all plastic A29 patellar component. There was good patellar tracking. The trial components were removed. The knee was copiously irrigat ed with pulsatile lavage and the bony surfaces thoroughly cleaned and dried. The permanent component s were then cemented in a single stage using 1 package of cement premixed with 1 gram of tobramycin p owder. Excess cement was removed. There was again good fit and stability of the components. The kn ee was then copiously irrigated. Skin was infiltrated with 30 mL of 0.25% Marcaine with epinephrine. The medial retinaculum and quadriceps mechanism was closed with interrupted #2-0 Vicryl and a runni ng #2 Quill. Subcutaneous tissues closed with running 0 Quill suture and the skin closed with runnin g subcuticular 3-0 Monoderm and SurgiSeal skin adhesive. Sterile bulky compressive dressing was appl ied and the tourniquet deflated after 75 minutes. The foot promptly pinked up and sequential jitendra re device was placed on the operated leg. She was awakened, taken to recovery room in stable condi tion. There were no apparent intraoperative complications. The estimated blood loss was less than 1 00 mL.
--- NOTE | 2018-02-07 14:01 | RAD ---
LEFT KNEE TWO VIEWS: History: Post op total knee. Comparison: 07-12-17 FINDINGS: Satisfactory appearance of left total knee arthroplasty. Expected post-operative gas and edema. IMPRESSION: Satisfactory appearance left total knee arthroplasty. POS: [facility]
[2018-02-07] MEDS: Escitalopram Oxalate 10 mg Tablet PO SCH (14:35)
[2018-02-07] MEDS: Fish Oil 1,000 MG CAP PO SCH (14:35)
[2018-02-07] MEDS: Ferrous Gluconate 324 MG TAB PO SCH ×2 (14:35→20:43)
[2018-02-07] MEDS: Aspirin 81 mg Enteric Coated Tablet PO SCH ×2 (14:35→20:43)
[2018-02-07] MEDS: Folic Acid 1 MG TAB PO SCH (14:36)
[2018-02-07] MEDS: Gabapentin 300 MG CAP PO SCH ×3 (14:36→20:44)
[2018-02-07] MEDS: Multivitamin W/ Minerals 1 TAB PO SCH (14:36)
[2018-02-07] MEDS: Pravastatin Sodium 20 MG TAB PO SCH (14:36)
[2018-02-07] MEDS: Senokot S 8.6-50 MG TAB PO SCH ×2 (14:37→20:45)
[2018-02-07] MEDS: Ubidecarenone 50 MG CAP PO SCH (14:37)
[2018-02-07] MEDS: Sodium Chloride 0.9% 1,000 ML IV SCH ×2 (14:46→23:01)
[2018-02-07] MEDS: Ketorolac Tromethamine 30 MG/ML VIAL IVP SCH ×2 (14:47→21:23)
[2018-02-07] MEDS: HYDROcodone/Acetaminophen 10/325 mg Tablet PO PRN ×2 (17:06→21:22)
--- NOTE | 2018-02-07 17:09 | CON ---
DATE OF CONSULTATION: 02/07/2018 CONSULTING PHYSICIAN: Gui Pearce M.D. REASON FOR CONSULTATION: Medical management. HISTORY OF PRESENT ILLNESS: This patient is a 72-year-old female with a history of degenerative join t disease requiring prior right total knee replacements. The patient has been failing conservative m easures and ultimately requiring left knee replacement as well. She is now postop left knee and only complains of some discomfort in that knee. PAST MEDICAL HISTORY: Notable for hypertension, gastroesophageal reflux disorder, some depression an d peripheral neuropathy. She also has the chronic degenerative joint disease and some musculoskeleta l pain involving the left shoulder which she believes is likely rotator cuff. PAST SURGICAL HISTORY: Notable for tonsillectomy, total hysterectomy, ORIF of the right ankle and le ft wrist and right knee replacement. She also had a cholecystectomy. SOCIAL HISTORY: Patient denies tobacco, alcohol, or drug use. FAMILY HISTORY: Father has a history of coronary artery disease, hypertension, and cancer. Mother h ad a history of cancer as well which was lung cancer. REVIEW OF SYSTEMS: Negative Other than symptoms associated with her degenerative joint and musculosk eletal issues. She also continues to be symptomatic with her peripheral neuropathy but otherwise a 1 0-point review of systems was negative. ALLERGIES: PENICILLIN. HOME MEDICATIONS: Vitamin D3 3000 units p.o. daily, Flexeril 10 mg at bedtime, Benadryl 1 p.o. daily p.r.n., Lexapro 10 mg p.o. daily, fish oil 1000 mg p.o. daily, folic acid 1 mg every day, gabapentin 600 mg p.o. t.i.d., garlic 1000 mg every day, [place] 10/325 one p.o. t.i.d. p.r.n., iron plus 1 table t p.o. daily, melatonin 5 mg p.o. at bedtime, multivitamin 1 p.o. daily, naproxen 440 mg p.o. b.i.d., omeprazole 40 mg daily, pravastatin 10 mg every day, Super vitamin B1 p.o. at bedtime, trazodone 50 mg at bedtime, CoQ10 100 mg p.o. daily, vitamin E 2 tablets p.o. daily 200 unit caplets. PHYSICAL EXAMINATION: GENERAL APPEARANCE: Age appropriate female. She is awake and alert. She is in no acute distress, p leasant, cooperative. HEENT: Pupils are equal, reactive to light and accommodation. She has no OP lesions. Oral mucosa i s pink and moist. NECK: Supple and symmetric without lymphadenopathy or JVD. Trachea is midline. CARDIOVASCULAR: Regular rate and rhythm with no murmurs, gallops or rubs. LUNGS: Clear to auscultation bilaterally with no wheezes or rales. ABDOMEN: Soft, nontender, nondistended with positive bowel sounds. No masses, no organomegaly. SKIN: Warm and dry without significant edema. She does have some hypoesthesia in the left foot area . LABORATORY DATA: EKG from 01/27/2018 shows sinus rhythm with some left axis deviation and complete r ight bundle branch block. Outpatient labs from 01/27/2018, white count 8.7, hemoglobin 11.8, platele ts 227. Coags normal. Chemistries are normal. Urinalysis normal. Urine culture negative. MRSA sc reen negative. IMPRESSION AND PLAN: 1. Degenerative joint disease requiring total joint replacement of the left knee. The patient is po stop now and doing well. We will defer to Orthopedic Surgery for further management of that. Of not e, patient is Religion and does not want blood products. 2. Hyperlipidemia. The patient will continue with her usual outpatient course of pravastatin. 3. Peripheral neuropathy. The patient may resume her gabapentin. 4. History of depression. The patient will remain on her usual outpatient dose of Lexapro, which linares s been a relatively recent addition. Overall, the patient appears to be generally medically stable. We will continue to follow.
[2018-02-07] MEDS: Bupivacaine 0.5% 50 ML in Sodium Chloride 0.9% 50 ML NERVE BLCK SCH (23:01)
[2018-02-08] MEDS: HYDROcodone/Acetaminophen 10/325 mg Tablet PO PRN ×5 (01:40→22:08)
[2018-02-08] MEDS: Ketorolac Tromethamine 30 MG/ML VIAL IVP SCH ×3 (06:09→21:04)
[2018-02-08] MEDS: Ubidecarenone 50 MG CAP PO SCH (09:07)
[2018-02-08] MEDS: Senokot S 8.6-50 MG TAB PO SCH ×2 (09:07→21:03)
[2018-02-08] MEDS: Multivitamin W/ Minerals 1 TAB PO SCH (09:08)
[2018-02-08] MEDS: Gabapentin 300 MG CAP PO SCH ×3 (09:08→21:03)
[2018-02-08] MEDS: Pravastatin Sodium 20 MG TAB PO SCH (09:08)
[2018-02-08] MEDS: Aspirin 81 mg Enteric Coated Tablet PO SCH ×2 (09:09→21:04)
[2018-02-08] MEDS: Escitalopram Oxalate 10 mg Tablet PO SCH (09:09)
[2018-02-08] MEDS: Fish Oil 1,000 MG CAP PO SCH (09:09)
[2018-02-08] MEDS: Folic Acid 1 MG TAB PO SCH (09:09)
[2018-02-08] MEDS: Ferrous Gluconate 324 MG TAB PO SCH ×2 (09:09→21:04)
[2018-02-08] MEDS: Sodium Chloride 0.9% 1,000 ML IV SCH ×2 (09:09→14:31)
[2018-02-08] MEDS: traMADol HCl 50 MG TAB PO PRN ×2 (10:53→17:33)
[2018-02-08] MEDS: Bupivacaine 0.5% 50 ML in Sodium Chloride 0.9% 50 ML NERVE BLCK SCH ×2 (13:22→23:44)
--- NOTE | 2018-02-08 18:48 | PDOC.PN ---
- Subjective Encounter Start Date: 02/08/18 Encounter Start Time: 18:46 HAS HAD SOME PAIN TODAY. MANAGING. SHE IS NOT SHORT OF BREATH, BUT SAYS SHE CHOKED ON A PIECE OF CHICKEN AND COUGHED HARSHLY. STILL COUGHING A LITTLE AND HER VOICE IS HOARSE. OTHERWISE SHE FEELS OK. - Objective MAR Reviewed: Yes Vital Signs & Weight: Vital Signs (12 hours) Temp Pulse Resp BP BP BP Pulse Ox 02/08/18 16:00 99.0 F 95 16 110/63 89 L 02/08/18 12:00 98.9 F 87 16 107/63 95 02/08/18 08:00 98.4 F 83 18 91/58 L 97 Weight Admit Weight 215 lb Weight 215 lb I&O: 02/07/18 02/08/18 02/09/18 06:59 06:59 06:59 Intake Total 3040 1240 Output Total 2275 1075 Balance 765 165 Phys Exam - Physical Examination Constitutional: NAD HEENT: PERRLA, oral pharynx no lesions Neck: supple Respiratory: no wheezing, no rales, no rhonchi, clear to auscultation bilateral Cardiovascular: RRR, no significant murmur Gastrointestinal: soft, non-tender, no distention Musculoskeletal: no edema DRESSING TO LEFT KNEE. NO TTP IN CALF. WARM AND DRY. Neurological: non-focal Psychiatric: normal affect Dx/Plan (1) Status post left knee replacement Code(s): Z96.652 - PRESENCE OF LEFT ARTIFICIAL KNEE JOINT Status: Acute Plan: PLAN PER ORTHO. DOING WELL. CONTINUE WITH THERAPY. (2) CKD (chronic kidney disease) stage 2, GFR 60-89 ml/min Code(s): N18.2 - CHRONIC KIDNEY DISEASE, STAGE 2 (MILD) Status: Chronic (3) GERD (gastroesophageal reflux disease) Code(s): K21.9 - GASTRO-ESOPHAGEAL REFLUX DISEASE WITHOUT ESOPHAGITIS Status: Chronic (4) HLD (hyperlipidemia) Code(s): E78.5 - HYPERLIPIDEMIA, UNSPECIFIED Status: Chronic Plan: CONTINUING WITH HOME MEDS. (5) HTN (hypertension) Code(s): I10 - ESSENTIAL (PRIMARY) HYPERTENSION Status: Chronic Plan: STABLE. (6) Obesity (BMI 30-39.9) Code(s): E66.9 - OBESITY, UNSPECIFIED Status: Chronic (7) Rheumatoid arthritis Code(s): M06.9 - RHEUMATOID ARTHRITIS, UNSPECIFIED Status: Chronic (8) Hypoxia Code(s): R09.02 - HYPOXEMIA Status: Acute Plan: MILD. LIKELY FROM BENIGN ASPIRATION. WILL CONTINUE TO MONITOR. ON NC OXYGEN. - Plan * .
[2018-02-09] MEDS: Sodium Chloride 0.9% 1,000 ML IV SCH ×3 (01:40→23:56)
[2018-02-09] MEDS: HYDROcodone/Acetaminophen 10/325 mg Tablet PO PRN ×5 (04:03→23:05)
[2018-02-09] MEDS: Ketorolac Tromethamine 30 MG/ML VIAL IVP SCH ×2 (04:04→13:59)
[2018-02-09 04:44] LABS: #Eosinphils 0.8 thou/uL (0.0-0.7); #Monocytes 0.8 thou/uL (0.11-0.59); #Neutrophils 5.5 thou/uL (1.40-6.50); %Basophils 0.4 % (0.0-1.0); %Lymphocytes 21.6 % (21.0-51.0); %Monocytes 8.4 % (0.0-10.0); %Neutrophils 60.6 % (42.0-75.0); Hemoglobin 9.3 g/dL (12.0-16.0); Mean Corpuscular HGB CONC 33.4 g/dL (32.0-36.0); Mean Corpuscular Hemoglobin 30.7 pg (27.0-31.0); Mean Corpuscular Volume 91.9 fl (81.0-99.0); Mean Platelet Volume 5.5 fL (7.4-10.4); Platelet Count 157 thou/uL (130-400); RBC Distribution Width 12.3 % (11.5-14.5); Red Blood Cell (RBC) Count 3.01 mill/uL (4.20-5.40)
[2018-02-09 05:01] LABS: Anion Gap 9 mmol/L (10-20); BUN (Urea Nitrogen) 13 mg/dL (9.8-20.1); Calc. Creatinine Clearance 95 mL/min (70-130); Calcium 8.5 mg/dL (7.8-10.44); Carbon Dioxide 29 mmol/L (23-31); Chloride 100 mmol/L (98-107); Estimated GFR-MDRD 69; Glucose 103 mg/dL (83-110); Potassium 3.9 mmol/L (3.5-5.1); Sodium 134 mmol/L (136-145)
[2018-02-09] MEDS: Ubidecarenone 50 MG CAP PO SCH (09:25)
[2018-02-09] MEDS: Pravastatin Sodium 20 MG TAB PO SCH (09:31)
[2018-02-09] MEDS: Fish Oil 1,000 MG CAP PO SCH (09:31)
[2018-02-09] MEDS: Escitalopram Oxalate 10 mg Tablet PO SCH (09:32)
[2018-02-09] MEDS: Gabapentin 300 MG CAP PO SCH ×3 (09:32→20:17)
[2018-02-09] MEDS: Senokot S 8.6-50 MG TAB PO SCH ×2 (09:32→20:17)
[2018-02-09] MEDS: Folic Acid 1 MG TAB PO SCH (09:33)
[2018-02-09] MEDS: Aspirin 81 mg Enteric Coated Tablet PO SCH ×2 (09:33→20:16)
[2018-02-09] MEDS: Ferrous Gluconate 324 MG TAB PO SCH ×2 (09:33→20:17)
[2018-02-09] MEDS: Multivitamin W/ Minerals 1 TAB PO SCH (09:33)
--- NOTE | 2018-02-09 10:53 | RAD ---
CHEST ONE VIEW: History: Hypoxia. Comparison: 04-17-16 FINDINGS: Cardiac silhouette magnified by projection. Pulmonary vasculature unremarkable. Lungs remain hyperinf lated. Mediastinum midline with aortic calcifications. No lobar consolidation or evidence of pneumoth orax. degenerative changes of each shoulder. IMPRESSION: 1. Atherosclerosis. 2. Stable radiographic appearance of the chest. POS: [facility]
[2018-02-09] MEDS ORDERED: Bupivacaine 0.75% 33.3 ML in Sodium Chloride 0.9% 66.7 ML NERVE BLCK SCH (13:00)
--- NOTE | 2018-02-09 17:33 | PDOC.PN ---
- Subjective Encounter Start Date: 02/09/18 Encounter Start Time: 14:15 REPORTS SHE IS DOING MUCH BETTER TODAY. KNEE FEELS BETTER AND SHE IS ABLE AMBULATE BETTER. NO SOB. - Objective Vital Signs & Weight: Vital Signs (12 hours) Temp Pulse Resp BP BP Pulse Ox 02/09/18 15:03 98.7 F 96 18 100/57 L 100 02/09/18 11:00 99.1 F 88 18 131/70 02/09/18 08:00 98.3 F 88 20 96 02/09/18 07:41 98.3 F 88 20 98/61 96 Weight Admit Weight 215 lb Weight 215 lb I&O: 02/08/18 02/09/18 02/10/18 06:59 06:59 06:59 Intake Total 3040 1580 Output Total 2275 2375 Balance 765 -795 Result Diagrams: 02/09/18 04:02 02/09/18 04:02 Phys Exam - Physical Examination Constitutional: NAD HEENT: PERRLA, oral pharynx no lesions Respiratory: no wheezing, no rales, no rhonchi, clear to auscultation bilateral Cardiovascular: RRR, no significant murmur, no rub Gastrointestinal: soft, non-tender, no distention, positive bowel sounds Musculoskeletal: no edema LEFT LE WITH POST-SURGICAL DRESSING. WARM AND DRY. Neurological: non-focal Skin: no rash Dx/Plan (1) Status post left knee replacement Code(s): Z96.652 - PRESENCE OF LEFT ARTIFICIAL KNEE JOINT Status: Acute Plan: DOING WELL. PLAN FOR SWING BED IN [facility] OR TOMORROW. (2) CKD (chronic kidney disease) stage 2, GFR 60-89 ml/min Code(s): N18.2 - CHRONIC KIDNEY DISEASE, STAGE 2 (MILD) Status: Chronic (3) GERD (gastroesophageal reflux disease) Code(s): K21.9 - GASTRO-ESOPHAGEAL REFLUX DISEASE WITHOUT ESOPHAGITIS Status: Chronic (4) HLD (hyperlipidemia) Code(s): E78.5 - HYPERLIPIDEMIA, UNSPECIFIED Status: Chronic (5) HTN (hypertension) Code(s): I10 - ESSENTIAL (PRIMARY) HYPERTENSION Status: Chronic (6) Obesity (BMI 30-39.9) Code(s): E66.9 - OBESITY, UNSPECIFIED Status: Chronic (7) Rheumatoid arthritis Code(s): M06.9 - RHEUMATOID ARTHRITIS, UNSPECIFIED Status: Chronic (8) Hypoxia Code(s): R09.02 - HYPOXEMIA Status: Acute Plan: RESOLVED. CXR CLEAR. LUNGS CLEAR. - Plan * CONTINUING PATIENTS USUAL HOME MEDS AND SHE VERY STABLE WITH RESPECT TO HER MEDICAL CONDITIONS.
[2018-02-10] MEDS: HYDROcodone/Acetaminophen 10/325 mg Tablet PO PRN ×3 (03:35→11:56)
[2018-02-10] MEDS ORDERED: Cyclobenzaprine 10 MG TAB PO PRN (07:53)
[2018-02-10] MEDS: Pravastatin Sodium 20 MG TAB PO SCH (08:04)
[2018-02-10] MEDS: Senokot S 8.6-50 MG TAB PO SCH (08:05)
[2018-02-10] MEDS: Ubidecarenone 50 MG CAP PO SCH (08:06)
[2018-02-10] MEDS: Gabapentin 300 MG CAP PO SCH (08:06)
[2018-02-10] MEDS: Aspirin 81 mg Enteric Coated Tablet PO SCH (08:07)
[2018-02-10] MEDS: Multivitamin W/ Minerals 1 TAB PO SCH (08:07)
[2018-02-10] MEDS: Escitalopram Oxalate 10 mg Tablet PO SCH (08:07)
[2018-02-10] MEDS: Fish Oil 1,000 MG CAP PO SCH (08:07)
[2018-02-10] MEDS: Folic Acid 1 MG TAB PO SCH (08:07)
[2018-02-10] MEDS: Ferrous Gluconate 324 MG TAB PO SCH (08:07)
--- NOTE | 2018-02-10 08:49 | PDOC.PN ---
- Subjective Encounter Start Date: 02/10/18 Encounter Start Time: 08:55 Still has a bit of a wet cough and feels slightly SOB since the episode of choking on her food. No other problems. Eager to move over to [place]. - Objective Vital Signs & Weight: Vital Signs (12 hours) Temp Pulse Resp BP Pulse Ox 02/10/18 04:00 98.3 F 92 20 116/67 94 L 02/10/18 00:50 98.6 F 94 20 116/55 L 94 L 02/09/18 21:09 98.5 F 99 18 118/68 94 L Weight Admit Weight 215 lb Weight 215 lb I&O: 02/09/18 02/10/18 02/11/18 06:59 06:59 06:59 Intake Total 1580 2100 Output Total 2375 Balance -795 2100 Result Diagrams: 02/09/18 04:02 02/09/18 04:02 Phys Exam - Physical Examination Constitutional: NAD HEENT: PERRLA, oral pharynx no lesions Neck: no JVD, supple Respiratory: no wheezing, no rales, no rhonchi, clear to auscultation bilateral Cardiovascular: RRR, no significant murmur Gastrointestinal: soft, non-tender Musculoskeletal: no edema LLE looks good. No signif edema or cellulitic changes. Neurological: non-focal Dx/Plan (1) Status post left knee replacement Code(s): Z96.652 - PRESENCE OF LEFT ARTIFICIAL KNEE JOINT Status: Acute Plan: TRANSFER TO [facility] BED TODAY. (2) Bronchitis Code(s): J40 - BRONCHITIS, NOT SPECIFIED ACUTE OR CHRONIC Status: Acute Plan: HAD ONE EPISODE OF ASPIRATING FOOD. HAS NORMAL AIRWAY PROTECTION AND COUGH. CXR WAS NORMAL AND HER EXAM IS BENIGN. APPEARS VERY COMFORTABLE WITH NO TACHYPNEA, BUT SATS ARE BORDERLINE ON RA. GOOD ON 2 LPM NC. NO INDICATION FOR ANTIBIOTICS FOR THE BRONCHITIS. SHOULD RESOLVE WITH TIME. RECOMMEND CONTINUED USE OF THE INCENTIVE SPRIROMETER. (3) CKD (chronic kidney disease) stage 2, GFR 60-89 ml/min Code(s): N18.2 - CHRONIC KIDNEY DISEASE, STAGE 2 (MILD) Status: Chronic Plan: STABLE (4) GERD (gastroesophageal reflux disease) Code(s): K21.9 - GASTRO-ESOPHAGEAL REFLUX DISEASE WITHOUT ESOPHAGITIS Status: Chronic Plan: STABLE. CONTINUE HOME MEDS. (5) HLD (hyperlipidemia) Code(s): E78.5 - HYPERLIPIDEMIA, UNSPECIFIED Status: Chronic (6) HTN (hypertension) Code(s): I10 - ESSENTIAL (PRIMARY) HYPERTENSION Status: Resolved Plan: NO MEDS AND VERY GOOD BLOOD PRESSURES. (7) Obesity (BMI 30-39.9) Code(s): E66.9 - OBESITY, UNSPECIFIED Status: Chronic (8) Rheumatoid arthritis Code(s): M06.9 - RHEUMATOID ARTHRITIS, UNSPECIFIED Status: Chronic (9) Hypoxia Code(s): R09.02 - HYPOXEMIA Status: Acute Plan: VERY MINIMAL IN THE SETTING OF BRONCHITIS. NC O2 PRN. - Plan * TRANSFER TO [facility] TODAY.
[2018-02-10] MEDS: Sodium Chloride 0.9% 1,000 ML IV SCH (09:01)
[2018-02-10 09:02] VITALS: BP 137/81; TEMP 98.8
== END 2018-02-10 12:51 | disposition swing bed (61) | DRG 470 ==
LOC: SDC 06:09 → SJJU 07:16
PROVIDERS: ADMIT Orthopaedic Surgery; ATTEND Orthopaedic Surgery
PROC: 0SRD0J9 Replacement of Left Knee Joint with Synthetic Substitute, Cemented, Open Approach (ICD-10-PCS; principal; 2018-02-07)
DX: M17.12 Unilateral primary osteoarthritis, left knee (principal); K21.9 Gastro-esophageal reflux disease without esophagitis; G62.9 Polyneuropathy, unspecified; I12.9 Hypertensive chronic kidney disease with stage 1 through stage 4 chronic kidney disease, or unspecified chronic kidney disease; J40 Bronchitis, not specified as acute or chronic; N18.2 Chronic kidney disease, stage 2 (mild); E66.9 Obesity, unspecified; M06.9 Rheumatoid arthritis, unspecified; R09.02 Hypoxemia; Z88.0 Allergy status to penicillin; Z96.651 Presence of right artificial knee joint; Z90.710 Acquired absence of both cervix and uterus
CPT/HCPCS: 36415; 71045; 80048; 85025; C1713; C1776; G8978-GP-CK; G8979-GP-CJ; J1885; J1956; J2001; J2250; J2405; J2704; J2795; J3010; J3370; J3490; J7050; S0020

== ENCOUNTER 2018-10-06 08:30 | Outpatient (CLI) | payer MEDICARE ==
--- NOTE | 2018-10-06 13:37 | MRI ---
CERVICAL SPINE MRI WITHOUT CONTRAST: HISTORY: Neck pain radiating from the left jaw to the left shoulder and left elbow, x many years. The pain is worsening the last few weeks. COMPARISON: None. TECHNIQUE: MRI of the cervical spine is performed without intravenous Gadolinium administration. Multisequentia l, multiplanar imaging was performed. FINDINGS: Appropriate T1 marrow signal intensity of the cervical vertebrae. Cervical spine vertebral body heig ht is maintained. There is no fracture. Visualized brain parenchyma, cervicomedullary junction, cervical cord, and the upper thoracic cord linares ve a normal size and signal intensity. There is no significant STIR hyperintensity to suggest vertebral body edema or ligamentous injury. C2-C3: No significant central canal stenosis. Mild to moderate right and mild left foraminal narrow ing due to uncovertebral hypertrophy. C3-C4: Broad-based disk-osteophyte complex abuts the thecal sac and effaces the ventral subarachnoid space. At least mild central canal stenosis. No cord signal abnormality or significant mass effect upon the cervical cord. Hypertrophic changes in both uncovertebral joints results in moderate to se susan right and left foraminal narrowing. C4-C5: No significant central canal stenosis. Neural foramen are patent. C5-C6: Central/left paracentral disk-osteophyte complex. Mild mass effect upon the right aspect of the ventral thecal sac. Mild deformity of the right hemicord, without cord signal abnormality. Over all mild central canal stenosis. Hypertrophic changes in both uncovertebral joints results in mild t o moderate bilateral foraminal narrowing. C6-C7: There is a central disk-osteophyte complex that abuts the thecal sac. No significant central canal stenosis. Neural foramen are patent. C7-T1: No significant disk-osteophyte complex. No significant central canal stenosis. Foramen are patent. IMPRESSION: Degenerative changes of the cervical spine as detailed above. POS: [facility]
== END 2018-10-06 08:31 | disposition home or self-care (01) ==
LOC: SCSMRI 08:30
PROVIDERS: ATTEND Orthopaedic Surgery
DX: M47.22 Other spondylosis with radiculopathy, cervical region (principal)
CPT/HCPCS: 72141

== ENCOUNTER 2018-12-07 10:09 | Inpatient (IN) | payer MEDICARE ==
[2018-12-07 11:05] LABS: #Basophils 0.1 thou/uL (0.0-0.2); #Lymphocytes 0.9 thou/uL (1.20-3.40); #Neutrophils 14.2 thou/uL (1.40-6.50); %Basophils 0.5 % (0.0-1.0); %Eosinophils 0.3 % (0.0-10.0); %Lymphocytes 5.4 % (21.0-51.0); %Monocytes 6.2 % (0.0-10.0); %Neutrophils 87.6 % (42.0-75.0); Hemoglobin 12.6 g/dL (12.0-16.0); Mean Corpuscular HGB CONC 31.6 g/dL (32.0-36.0); Mean Corpuscular Hemoglobin 27.5 pg (27.0-31.0); Mean Corpuscular Volume 86.8 fL (78.0-98.0); Platelet Count 208 thou/uL (130-400); RBC Distribution Width 14.4 % (11.5-14.5); Red Blood Cell (RBC) Count 4.59 mill/uL (4.20-5.40); White Blood Cell (WBC) Count 16.2 thou/uL (4.8-10.8)
[2018-12-07] MEDS ORDERED: methylPREDNISolone Sod Succ/PF 125 MG/2 ML VIAL ONE (11:13)
[2018-12-07] MEDS ORDERED: Water For Inject, Bacteriostat 30 ML ONE (11:13)
[2018-12-07] MEDS ORDERED: Acetaminophen 500 MG TAB ONE (11:13)
[2018-12-07] MEDS ORDERED: Sodium Chloride 0.9% 100 ML ONE (11:13)
[2018-12-07] MEDS ORDERED: cefTRIAXone\\ROCEPHIN 1 GM VIAL ONE (11:13)
--- NOTE | 2018-12-07 11:14 | RAD ---
Exam: Chest one view HISTORY:Cough Comparison: 02/09/2018 FINDINGS: Cardiac silhouette: Normal Pulmonary vessels: Normal Costophrenic angles: Clear LUNGS: Patchy bilateral interstitial opacities. Additionally, there are right perihilar and right low er lobe alveolar opacities. Pneumothorax: None Osseous abnormalities: None IMPRESSION: Bilateral interstitial and right lung parenchymal alveolar opacities. Multi lobar pneumonia is suspec jaleel. Continued surveillance to ensure resolution.
[2018-12-07 11:16] LABS: ALT (SGPT) 14 U/L (8-55); AST (SGOT) 15 U/L (5-34); Alkaline Phosphatase 79 U/L (40-150); Anion Gap 14 mmol/L (10-20); BUN (Urea Nitrogen) 14 mg/dL (9.8-20.1); Bilirubin, Total 0.5 mg/dL (0.2-1.2); CK (CPK) 64 U/L (29-168); Calc. Creatinine Clearance 0 mL/min (70-130); Calcium 9.1 mg/dL (7.8-10.44); Carbon Dioxide 28 mmol/L (23-31); Chloride 98 mmol/L (98-107); Estimated GFR-MDRD 56; Globulin 3.5 g/dL (2.4-3.5); Glucose 106 mg/dL (83-110); Potassium 4.3 mmol/L (3.5-5.1); Protein, Total 7.5 g/dL (6.0-8.3); Sodium 136 mmol/L (136-145)
[2018-12-07] MEDS ORDERED: Aspirin Chewable 81 MG TAB ONE (11:41)
[2018-12-07] MEDS ORDERED: Enoxaparin Sodium 100 MG/ML SYRINGE ONE (11:51)
[2018-12-07 14:05] LABS: Bilirubin Negative (Negative); Blood, Urine Trace (Negative); Clarity Hazy (Clear); Glucose, Urine (Dipstick) Negative (Negative); Leukocyte Trace (Negative); Nitrite Positive (Negative); Protein, Urine (Dipstick) Negative (Neg-Trace); Specific Gravity, Urine 1.015 (1.005-1.030); pH, Urine 8.5 (5.0-9.0)
[2018-12-07 14:08] LABS: Bacteria/HPF 2+ HPF (None Seen); RBC/HPF 0-3 HPF (0-3)
[2018-12-07 14:29] LABS: Troponin I 0.138 ng/mL (< 0.028)
[2018-12-07] MEDS ORDERED: Acetaminophen 325 MG TAB ONE (15:26)
[2018-12-07] MEDS ORDERED: Ondansetron PF 4 MG/2 ML Vial IVP PRN (16:37)
[2018-12-07] MEDS ORDERED: Ondansetron ODT 4 MG TAB SL PRN (16:37)
[2018-12-07] MEDS ORDERED: Sodium Chloride 0.9% 1,000 ML IV SCH (16:37)
[2018-12-07] MEDS ORDERED: Acetaminophen 325 MG TAB PO PRN (16:37)
[2018-12-07] MEDS ORDERED: Bacteriostatic Water 30 ML VIAL FS PRN (16:41)
[2018-12-07 17:15] VITALS: BMI 39.6
[2018-12-07] MEDS ORDERED: methylPREDNISolone Sod Succ/PF 125 MG/2 ML VIAL IVP SCH (18:00)
[2018-12-07] MEDS ORDERED: HYDROcodone/Acetaminophen 5/325 mg Tablet PO PRN (20:07)
[2018-12-07] MEDS ORDERED: diphenhydrAMINE 25 MG CAP PO PRN (20:26)
[2018-12-07 21:15] LABS: Troponin I 0.074 ng/mL (< 0.028)
[2018-12-07] MEDS: Sodium Chloride 0.9% 1,000 ML IV SCH ×2 (21:17→23:34)
[2018-12-07] MEDS: Gabapentin 300 MG CAP PO SCH (21:17)
[2018-12-07] MEDS: Famotidine 20 MG TAB PO SCH (21:17)
[2018-12-07] MEDS: Aspirin 81 mg Enteric Coated Tablet PO SCH (21:18)
[2018-12-07] MEDS: Cyclobenzaprine 10 MG TAB PO SCH (21:18)
[2018-12-07] MEDS: Melatonin 3 MG TAB PO SCH (21:19)
--- NOTE | 2018-12-08 02:13 | HP ---
CHIEF COMPLAINT: Shortness of breath and cough. HISTORY OF PRESENT ILLNESS: This patient is a 73-year-old female, who presented initially to the [facility] Emergency Department. The patient reports that she has had a cough productive of discolored sputum for the past 7d ays, which has progressed. She has had some associated discomfort in her chest related to the cough itself, but not otherwise. She is critical on subjective fevers. She reported some upper respiratory symptoms as well with rhinorrhea. Today, her symptoms progressed and she presented to the emergency department where she had an episode of hypoxia, improved with oxygen and single episode of hypotension with blood pressure of 93/60. She had a temp of 100.5. Her chest x-ray showed multilobar pneumonia. The patient was subsequently moved here for admission. She currently says she is feeling a bit better. REVIEW OF SYSTEMS: The patient reports some chronic pain in her neck and shoulder, which is related to the rheumatoid arthritis. All other systems were reviewed and all pertinent positives and negatives noted in the history of present illness. PAST MEDICAL HISTORY: Notable for a prior episode of pneumonia with sepsis a couple years prior. She has hypertension, reflux, degenerative joint disease, rheumatoid arthritis, although she is not on any specific therapy, dyslipidemia, peripheral neuropathy, hypothyroidism. FAMILY HISTORY: Reviewed, noncontributory relative to this admission. PAST SURGICAL HISTORY: Right ankle, right knee replacement. She had tonsillectomy/adenoidectomy with uvulectomy. ALLERGIES: PENICILLIN. THE PATIENT REPORTS THAT SHE HAD MULTIPLE INJECTIONS OF PENICILLIN WHEN SHE WAS A CHILD RELATED TO TONSILLECTOMY AND SHE HAD A SMALL RASH ASSOCIATED WITH THAT, BUT NEVER ANYTHING SINCE THAT TIME. CURRENT MEDICATIONS: 1. Levothyroxine 50 mcg p.o. daily. 2. Prilosec 20 mg daily. 3. Trazodone 50 mg at bedtime. 4. Wellbutrin 100 mg p.o. daily. 5. Zoloft 100 mg daily. 6. Gabapentin 600 mg at bedtime. PHYSICAL EXAMINATION: VITAL SIGNS: Temperature 98.9, pulse 88, respirations 15, O2 saturation 96% on nasal cannula. GENERAL APPEARANCE: Age-appropriate female, slightly obese, in no distress. She is awake, alert, oriented, pleasant, and cooperative. HEENT: PERRL. No OP lesions. NECK: Supple and symmetric. No lymphadenopathy, JVD, or bruits. HEART: Regular rate and rhythm without murmurs, gallops, or rubs. LUNGS: Clear to auscultation bilaterally without significant wheezes or rales noted. ABDOMEN: Soft, nontender, and nondistended. Positive bowel sounds. No masses. No organomegaly. EXTREMITIES: The patient has some slight puffy edema which is nonpitting of the lower extremities. LABORATORY DATA: White count 16.2, hemoglobin 12.6, platelets 208. Sodium 136, potassium 4.3, chloride 98, CO2 is 28, BUN 14, creatinine 0.97. LFTs normal. Troponin 0.135, subsequently 0.138. Urinalysis shows trace blood, positive nitrites, trace leukocyte esterase, 4-6 white cells, 2+ bacteria, but 7-10 squamous epithelial cells. Flu screen is negative. Chest x-ray shows bilateral interstitial and right lung parenchymal alveolar opacities. Multilobar pneumonia is suspected. EMERGENCY ROOM COURSE: The patient received Rocephin, Levaquin, fluid resuscitation, aspirin, Lovenox 100 mg and Solu-Medrol in the emergency department. IMPRESSION AND PLAN: 1. Multilobar pneumonia with an episode of hypoxia and hypotension at the emergency department, consistent with sepsis. She has been hydrated. Blood pressure appears to have responded nicely and she actually looks pretty well at the moment. We will continue with Levaquin, supplemental oxygen, and nebulizers as needed. We will discontinue the steroids. The patient is admitted to the [facility] where she will receive consultation from Pulmonary/Critical Care as well. 2. Acute hypoxic respiratory failure related to multilobar pneumonia. Continue supplemental oxygen as needed. 3. Sepsis as above. It appears to be quite stable now. She is in the IMCU, but I suspect she will likely be able to go to the floor first thing in the morning. 4. Elevated troponin secondary to myocardial infarction type 2, demand ischemia from sepsis with relative hypotension and hypoxia. It does not appear to be demonstrating the significant physiologic rise. We will repeat one more. 5. Possible urinary tract infection. Cultures are pending. Should be covered with the Levaquin. 6. History of rheumatoid arthritis, although the patient is on no specific medications at this time. We will give her some pain management medications for her specific neck and shoulder pain. 7. Hypothyroidism. Continue with her normal levothyroxine dose. 8. Peripheral neuropathy. Continue with the gabapentin. 9. History of hyperlipidemia. Continue with the pravastatin. Job ID: [id number] MTDD
[2018-12-08 05:10] LABS: #Lymphocytes 0.9 thou/uL (1.20-3.40); #Monocytes 0.4 thou/uL (0.11-0.59); #Neutrophils 13.1 thou/uL (1.40-6.50); %Eosinophils 0.2 % (0.0-10.0); %Lymphocytes 6.1 % (21.0-51.0); %Neutrophils 90.7 % (42.0-75.0); Hemoglobin 11.7 g/dL (12.0-16.0); Mean Corpuscular HGB CONC 32.8 g/dL (32.0-36.0); Mean Corpuscular Hemoglobin 29.3 pg (27.0-31.0); Mean Corpuscular Volume 89.5 fL (78.0-98.0); Platelet Count 199 thou/uL (130-400); RBC Distribution Width 13.5 % (11.5-14.5); Red Blood Cell (RBC) Count 3.99 mill/uL (4.20-5.40); White Blood Cell (WBC) Count 14.4 thou/uL (4.8-10.8)
[2018-12-08 05:30] LABS: Anion Gap 13 mmol/L (10-20); BUN (Urea Nitrogen) 11 mg/dL (9.8-20.1); Calc. Creatinine Clearance 115 mL/min (70-130); Calcium 8.7 mg/dL (7.8-10.44); Carbon Dioxide 23 mmol/L (23-31); Chloride 107 mmol/L (98-107); Estimated GFR-MDRD 78; Glucose 160 mg/dL (83-110); Potassium 3.5 mmol/L (3.5-5.1); Sodium 139 mmol/L (136-145)
[2018-12-08] MEDS: Levothyroxine Sodium 25 MCG TAB PO SCH (05:33)
[2018-12-08] MEDS: Aspirin 81 mg Enteric Coated Tablet PO SCH ×2 (08:40→20:56)
[2018-12-08] MEDS: Cyanocobalamin (Vitamin B-12) 1,000 MCG TAB PO SCH (08:40)
[2018-12-08] MEDS: Famotidine 20 MG TAB PO SCH ×2 (08:40→20:56)
[2018-12-08] MEDS: Folic Acid 1 MG TAB PO SCH (08:40)
[2018-12-08] MEDS: Pravastatin Sodium 20 MG TAB PO SCH (08:40)
[2018-12-08] MEDS: Escitalopram Oxalate 10 mg Tablet PO SCH (08:41)
[2018-12-08] MEDS: Gabapentin 300 MG CAP PO SCH ×3 (08:41→20:56)
[2018-12-08] MEDS: HYDROcodone/Acetaminophen 5/325 mg Tablet PO PRN ×3 (08:41→21:04)
[2018-12-08] MEDS: Enoxaparin Sodium 40 MG/0.4 ML SYRINGE SC SCH (08:42)
--- NOTE | 2018-12-08 10:10 | PDOC.PN ---
- Subjective Encounter Start Date: 12/08/18 Encounter Start Time: 11:40 Subjective: Patient still feeling weak. Eating ok. SOB better on oxygen. No fever -: over night. - Objective MAR Reviewed: Yes Vital Signs & Weight: Vital Signs (12 hours) Temp Pulse Resp Pulse Ox 12/08/18 08:00 98.5 F 12/08/18 04:00 98.8 F 12/08/18 00:00 98.2 F 12/07/18 22:10 94 16 94 L Weight Weight 238 lb 1.588 oz Most Recent Monitor Data Heart Rate from ECG 94 NIBP 163/77 NIBP BP-Mean 105 Respiration from ECG 15 SpO2 96 I&O: 12/07/18 12/08/18 12/09/18 06:59 06:59 06:59 Intake Total 1424 Output Total 1300 Balance 124 Result Diagrams: 12/08/18 04:36 12/08/18 04:36 Phys Exam - Physical Examination Constitutional: NAD HEENT: moist MMs occ rhonchi and rales, decent air movement throughout Cardiovascular: RRR Gastrointestinal: soft, positive bowel sounds trace bilateral edema LE Neurological: non-focal, moves all 4 limbs Psychiatric: normal affect, A&O x 3 Dx/Plan (1) Bacterial lobar pneumonia Code(s): J15.9 - UNSPECIFIED BACTERIAL PNEUMONIA Status: Acute Comment: multilobar, on Levaquin since 12/07/18 (2) Sepsis Code(s): A41.9 - SEPSIS, UNSPECIFIED ORGANISM Status: Acute Comment: hypotension resolved with fluids (3) Acute respiratory failure with hypoxia Code(s): J96.01 - ACUTE RESPIRATORY FAILURE WITH HYPOXIA Status: Acute Comment: sating well on 2L NC (4) Elevated troponin Code(s): R74.8 - ABNORMAL LEVELS OF OTHER SERUM ENZYMES Status: Acute Comment: likely demand ischemia, trending down, cardiology consulted (5) Elevated brain natriuretic peptide (BNP) level Code(s): R79.89 - OTHER SPECIFIED ABNORMAL FINDINGS OF BLOOD CHEMISTRY Status : Acute Comment: ECHO pending (6) GERD (gastroesophageal reflux disease) Code(s): K21.9 - GASTRO-ESOPHAGEAL REFLUX DISEASE WITHOUT ESOPHAGITIS Status: Chronic (7) HLD (hyperlipidemia) Code(s): E78.5 - HYPERLIPIDEMIA, UNSPECIFIED Status: Chronic (8) Obesity (BMI 30-39.9) Code(s): E66.9 - OBESITY, UNSPECIFIED Status: Chronic (9) Rheumatoid arthritis Code(s): M06.9 - RHEUMATOID ARTHRITIS, UNSPECIFIED Status: Chronic (10) HTN (hypertension) Code(s): I10 - ESSENTIAL (PRIMARY) HYPERTENSION Status: Chronic - Plan cont current plan of care, continue antibiotics, respiratory therapy, DVT proph w/lovenox * . - Discharge Day Encounter end time: 12:00
[2018-12-08] MEDS: Ubidecarenone 50 MG CAP PO SCH (12:07)
[2018-12-08] MEDS: Bupropion 100 MG SR TAB PO SCH (12:07)
--- NOTE | 2018-12-08 16:15 | CON ---
DATE OF CONSULTATION: 12/08/2018 REASON FOR CONSULTATION: Elevated troponins. HISTORY OF PRESENT ILLNESS: Ms. Sherwood is a pleasant 73-year-old white female, who comes to the hospital for shortness of breath and cough. She was found to have a fever of 100.5 and blood pressure 93/60. She was admitted after chest x-ray showed multilobar pneumonia, was started on IV antibiotics. Troponins were measured and were elevated, so Cardiology consulted for this. She denies any chest pain, tightness, or pressure, except for cough and shortness of breath, which is attributed to the pneumonia. PAST MEDICAL HISTORY: 1. Pneumonia with sepsis about 2 years ago. 2. Hypertension. 3. GERD. 4. Degenerative joint disease. 5. Rheumatoid arthritis. 6. Hyperlipidemia. 7. Peripheral neuropathy. 8. Hypothyroidism. FAMILY HISTORY: No early coronary artery disease. PAST SURGICAL HISTORY: 1. Right ankle surgery. 2. Right knee replacement. 3. Tonsillectomy. 4. Adenoidectomy. 5. Uvulectomy. OUTPATIENT MEDICATIONS: 1. Levothyroxine 50 mcg a day. 2. Prilosec. 3. Trazodone. 4. Wellbutrin. 5. Zoloft. 6. Gabapentin. ALLERGIES: PENICILLIN. SOCIAL HISTORY: No alcohol, tobacco, or drugs. REVIEW OF SYSTEMS: A 12-point review of systems was done and was found to be negative unless stated in the history of present illness. PHYSICAL EXAMINATION: VITAL SIGNS: Temperature 100.5 down to 98.6 now, respiratory rate 18, saturating 97% on room air, and blood pressure 138/84. GENERAL: Awake, alert, and oriented x3. No distress. HEENT: Normocephalic and atraumatic. NECK: Supple. LUNGS: Mild crackles at bilateral bases. CARDIOVASCULAR: S1 and S2. No S3 or S4. No murmurs. ABDOMEN: Soft. Positive bowel sounds. EXTREMITIES: No edema. SKIN: Warm and dry. LABORATORY DATA: Laboratory work was reviewed. CBC with a white count of 16 on admission, normal hemoglobin 12.6 down to 11.7, normal platelets 208. Chemistries unremarkable except for glucose of 160. Lactic acid was 1.2. Troponin is in the indeterminate range at 1.13, 1.13, and 1.07. BNP was 354. TSH is 0.67. UA with positive nitrites. Chest x-ray with bilateral infiltrate suggestive of multilobar pneumonia. It could also be pulmonary edema. ASSESSMENT: 1. Elevated troponins: Most likely demand ischemia from septic like syndrome. 2. Urinary tract infection. 3. Multilobar pneumonia. PLAN: 1. We will get an echocardiogram to make sure that her LV function and valvular structures are all unremarkable. 2. No recommendation for full anticoagulation at this time given this is most likely demand ischemia from her acute infectious process. 3. We will follow. Job ID: [id number]
[2018-12-08] MEDS: Melatonin 3 MG TAB PO SCH (20:57)
[2018-12-08] MEDS: traZODone HCl 50 MG TAB PO SCH (22:38)
[2018-12-08] MEDS: Cyclobenzaprine 10 MG TAB PO SCH (22:38)
--- NOTE | 2018-12-09 00:22 | CON ---
DATE OF CONSULTATION: 12/08/2018 HISTORY OF PRESENT ILLNESS: Presley is a 73-year-old female. She says she has been feeling poorly for several weeks. She finally developed fever and started getting short of breath with her cough, so she came to the emergency room. We were consulted to assist in her management on the intermediate care unit. PAST MEDICAL HISTORY: Remarkable for 1. Pneumonia 2 years ago. 2. Hypertension. 3. Reflux disease. 4. Rheumatoid arthritis. 5. Degenerative arthritis. 6. History of peripheral neuropathy. 7. Lipid disorder. 8. Hypothyroidism, on replacement. 9. History of right ankle surgery and right knee replacement. 10. History of tonsillectomy. 11. History of uvulectomy. MEDICATIONS: Prior to admission, she is on 1. Synthroid. 2. Prilosec. 3. Trazodone. 4. Wellbutrin. 5. Zoloft. 6. Gabapentin. ALLERGIES: SHE REPORTS PENICILLIN ALLERGY. SOCIAL HISTORY: She is a nonsmoker and nondrinker. FAMILY HISTORY: Not obtained. REVIEW OF SYSTEMS: A 12-point review of systems completed, is negative. PHYSICAL EXAMINATION: GENERAL: She is in absolutely in no distress. VITAL SIGNS: She is afebrile. Heart rate is 73, respiratory rate 16, oximetry is 96% on room air, blood pressure 163/83. HEENT: Pupils are equal. Sclerae are anicteric. Extraocular movements are full. NECK: Supple. LUNGS: Remarkable for crackles at her right base more than the left. HEART: Regular rhythm. S1 and S2 are normal. ABDOMEN: Soft and nontender. EXTREMITIES: Without clubbing, cyanosis, or edema. NEUROLOGIC: Grossly nonfocal. LABORATORY DATA: White count 14.4, hemoglobin 11.7, platelets 199. Electrolytes are normal. Creatinine is 0.73. Chest x-ray shows a fairly dense alveolar infiltrate in her right base. IMPRESSION: Community-acquired pneumonia, clinically improving. She says she feels better. Cultures are negative so far. PLAN: We will continue with current antimicrobial therapy. Probably would benefit from nebulizer treatments while she is in the hospital. TIME SPENT: This is a 50-minute consult, with greater than 50% of the time spent on the unit coordinating care. Job ID: [id number] [facility]
[2018-12-09] MEDS ORDERED: Furosemide 40 MG/4 ML VIAL ONE (04:55)
[2018-12-09] MEDS: Sodium Chloride 0.9% 1,000 ML IV SCH ×2 (05:06→12:37)
[2018-12-09] MEDS: Levothyroxine Sodium 25 MCG TAB PO SCH (05:07)
[2018-12-09] MEDS ORDERED: Furosemide 20 MG/2 ML VIAL SLOW IVP SCH (05:15)
--- NOTE | 2018-12-09 08:51 | PDOC.PN ---
- Subjective Encounter Start Date: 12/09/18 Encounter Start Time: 09:30 Subjective: Patient reports she got severely SOB last night, told she had lots of -: crackles, put on Bipap overnight and given Lasix. Better this AM. Eating -: ok today. - Objective MAR Reviewed: Yes Vital Signs & Weight: Vital Signs (12 hours) Temp Pulse Resp Pulse Ox 12/09/18 07:59 99.8 F H 12/09/18 07:04 113 H 12/09/18 07:02 113 H 25 H 98 12/09/18 04:57 135 H 12/09/18 04:50 135 H 28 H 95 12/09/18 03:54 99.4 F 12/09/18 00:00 99.0 F Weight Weight 249 lb 5 oz Most Recent Monitor Data Heart Rate from ECG 112 NIBP 126/66 NIBP BP-Mean 86 Respiration from ECG 19 SpO2 98 I&O: 12/08/18 12/09/18 12/10/18 06:59 06:59 06:59 Intake Total 1424 2625 Output Total 1300 250 Balance 124 2375 Result Diagrams: 12/08/18 04:36 12/08/18 04:36 Phys Exam - Physical Examination Constitutional: NAD HEENT: moist MMs Respiratory: no wheezing few crackles in right base Cardiovascular: RRR Gastrointestinal: soft, positive bowel sounds Neurological: non-focal, moves all 4 limbs Psychiatric: normal affect, A&O x 3 Dx/Plan (1) Bacterial lobar pneumonia Code(s): J15.9 - UNSPECIFIED BACTERIAL PNEUMONIA Status: Acute Comment: multilobar, on Levaquin since 12/07/18, nebs added, appreciate Dr. Mathew's imput (2) Sepsis Code(s): A41.9 - SEPSIS, UNSPECIFIED ORGANISM Status: Acute Comment: hypotension resolved with fluids (3) Acute respiratory failure with hypoxia Code(s): J96.01 - ACUTE RESPIRATORY FAILURE WITH HYPOXIA Status: Acute Comment: sating well on 2L NC, probably got a little fluid overloaded last night but resolved now (4) Elevated troponin Code(s): R74.8 - ABNORMAL LEVELS OF OTHER SERUM ENZYMES Status: Acute Comment: likely demand ischemia, trending down, appreciate Dr. Gayle's imput, ECHO ordered (5) Elevated brain natriuretic peptide (BNP) level Code(s): R79.89 - OTHER SPECIFIED ABNORMAL FINDINGS OF BLOOD CHEMISTRY Status : Acute Comment: ECHO pending (6) GERD (gastroesophageal reflux disease) Code(s): K21.9 - GASTRO-ESOPHAGEAL REFLUX DISEASE WITHOUT ESOPHAGITIS Status: Chronic (7) HLD (hyperlipidemia) Code(s): E78.5 - HYPERLIPIDEMIA, UNSPECIFIED Status: Chronic (8) Obesity (BMI 30-39.9) Code(s): E66.9 - OBESITY, UNSPECIFIED Status: Chronic (9) Rheumatoid arthritis Code(s): M06.9 - RHEUMATOID ARTHRITIS, UNSPECIFIED Status: Chronic (10) HTN (hypertension) Code(s): I10 - ESSENTIAL (PRIMARY) HYPERTENSION Status: Chronic - Plan cont current plan of care, continue antibiotics, respiratory therapy, out of bed /ambulate, DVT proph w/SCDs * . - Discharge Day Encounter end time: 09:40
--- NOTE | 2018-12-09 09:17 | RAD ---
CHEST 1 VIEW: HISTORY: Pneumonia. COMPARISON: Radiograph of 12/07/2018. FINDINGS: Right basilar airspace opacity is similar. Cardiac silhouette and mediastinal contours are similar. No pneumothorax. Left lung is clear. IMPRESSION: Similar appearance right basilar airspace opacity. Continued followup to resolution is recommended. This is concerning for infection. POS: TPC
[2018-12-09] MEDS: Gabapentin 300 MG CAP PO SCH ×3 (09:51→21:16)
[2018-12-09] MEDS: Cyanocobalamin (Vitamin B-12) 1,000 MCG TAB PO SCH (09:51)
[2018-12-09] MEDS: Escitalopram Oxalate 10 mg Tablet PO SCH (09:51)
[2018-12-09] MEDS: Bupropion 100 MG SR TAB PO SCH (09:51)
[2018-12-09] MEDS: Folic Acid 1 MG TAB PO SCH (09:51)
[2018-12-09] MEDS: Pravastatin Sodium 20 MG TAB PO SCH (09:51)
[2018-12-09] MEDS: Ubidecarenone 50 MG CAP PO SCH (09:51)
[2018-12-09] MEDS: Aspirin 81 mg Enteric Coated Tablet PO SCH ×2 (09:52→21:16)
[2018-12-09] MEDS: Enoxaparin Sodium 40 MG/0.4 ML SYRINGE SC SCH (09:52)
[2018-12-09] MEDS: Famotidine 20 MG TAB PO SCH ×2 (09:52→21:16)
[2018-12-09] MEDS: HYDROcodone/Acetaminophen 5/325 mg Tablet PO PRN ×3 (09:55→18:35)
--- NOTE | 2018-12-09 10:09 | PRG ---
DATE OF SERVICE: 12/09/2018 SUBJECTIVE: Ms. Sherwood wore BiPAP last night. She was in no distress, sitting on the side of the bed while I saw her yesterday. She said she became short of breath last night. Chest x-ray this morning actually looks a little better than the film 2 days ago. OBJECTIVE: VITAL SIGNS: She is afebrile, heart rate 113, respiratory rate is 25, oximetry is 98% on BiPAP, and blood pressure 126/66. LUNGS: Remarkable for crackles at the right base. HEART: Regular rhythm. ABDOMEN: Soft. I would think she could come off BiPAP. LABORATORY DATA: There is no new lab today. IMPRESSION: 1. Right lower lobe pneumonia, radiographically clinically stable. 2. Sleep apnea, suspect. 3. History of arthritis. 4. Hypertension. 5. Deconditioning. 6. Hypothyroidism, on replacement. We will continue to follow. Job ID: [id number]
[2018-12-09 11:19] VITALS: BP 136/80
--- NOTE | 2018-12-09 15:58 | PDOC.CTH ---
Cardiology Progress Note - Subjective She is doing better this morning. Overnight she became SOB and had orthopnea, she received a single dose of IV lasix and felt much better. - Objective Vital Signs Temp Pulse Pulse Resp BP BP Pulse Ox 12/09/18 14:52 109 H 16 97 12/09/18 10:47 108 H 18 98 12/09/18 08:53 84 136/80 135/59 L 12/09/18 08:00 98 12/09/18 07:59 99.8 F H 12/09/18 07:04 113 H 12/09/18 07:02 113 H 25 H 98 12/09/18 04:57 135 H 12/09/18 04:50 135 H 28 H 95 Pulse Ox Pulse Ox 12/09/18 14:52 12/09/18 10:47 12/09/18 08:53 94 L 95 12/09/18 08:00 12/09/18 07:59 12/09/18 07:04 12/09/18 07:02 12/09/18 04:57 12/09/18 04:50 Weight 249 lb 5 oz 12/08/18 12/09/18 12/10/18 06:59 06:59 06:59 Intake Total 1424 2625 Output Total 1300 250 Balance 124 2375 - Physical Examination General/Neuro: alert & oriented x3, NAD Neck: no JVD present Lungs: unlabored respirations Heart: RRR Abdomen: NT/ND Extremities: + edema B (trace) - Telemetry Telemetry Rhythm: NSR - Labs Result Diagrams: 12/08/18 04:36 12/08/18 04:36 Troponin/CKMB CK-MB (CK-2) 1.0 ng/mL (0-6.6) 12/07/18 10:49 Troponin I 0.074 ng/mL (< 0.028) H 12/07/18 20:45 - Assessment/Plan 1. RLL pnuemonia 2. RV dysfunction likely from TARA and pneumonia 3. TARA 4. HTN 5. Likely demand ischemia from pneumonia. PLAN: - Continue daily IV lasix. - Abx per primary lianet - No plan forcath at this time.
[2018-12-09] MEDS: Melatonin 3 MG TAB PO SCH (21:15)
[2018-12-09] MEDS: traZODone HCl 50 MG TAB PO SCH (21:16)
[2018-12-09] MEDS: Cyclobenzaprine 10 MG TAB PO SCH (21:16)
[2018-12-10] MEDS: Levothyroxine Sodium 25 MCG TAB PO SCH (06:01)
[2018-12-10] MEDS ORDERED: Loperamide HCl 2 MG CAP PO PRN (08:02)
[2018-12-10] MEDS ORDERED: Senokot S 8.6-50 MG TAB PO PRN (08:02)
[2018-12-10] MEDS ORDERED: Eucerin (Mineral Oil/Petrolatum,White) 30 gm Jar TOP PRN (08:02)
[2018-12-10] MEDS ORDERED: hydrALAZINE 20 MG/ML VIAL SLOW IVP PRN (08:02)
[2018-12-10] MEDS ORDERED: Cepastat Lozenges 1 LOZ PO PRN (08:02)
[2018-12-10] MEDS ORDERED: Bisacodyl 10 MG SUPP PR PRN (08:02)
[2018-12-10] MEDS ORDERED: Artificial Tears 18 DROP/0.9 ML EA EYE PRN (08:02)
[2018-12-10] MEDS ORDERED: Diabetic Tussin 200 MG/10 ML UDCUP PO PRN (08:02)
[2018-12-10] MEDS: HYDROcodone/Acetaminophen 5/325 mg Tablet PO PRN ×3 (08:02→20:16)
[2018-12-10] MEDS ORDERED: Metoclopramide HCl 10 MG/2 ML VIAL IVP PRN (08:02)
[2018-12-10] MEDS ORDERED: Sodium Chloride 0.65% Nasal 44 ML BOT EA NARE PRN (08:02)
[2018-12-10] MEDS: Enoxaparin Sodium 40 MG/0.4 ML SYRINGE SC SCH (08:04)
[2018-12-10] MEDS: Aspirin 81 mg Enteric Coated Tablet PO SCH ×2 (08:04→20:17)
[2018-12-10] MEDS: Cyanocobalamin (Vitamin B-12) 1,000 MCG TAB PO SCH (08:04)
[2018-12-10] MEDS: Bupropion 100 MG SR TAB PO SCH (08:04)
[2018-12-10] MEDS: Gabapentin 300 MG CAP PO SCH ×3 (08:05→20:17)
[2018-12-10] MEDS: Famotidine 20 MG TAB PO SCH ×2 (08:05→20:17)
[2018-12-10] MEDS: Escitalopram Oxalate 10 mg Tablet PO SCH (08:05)
[2018-12-10] MEDS: Folic Acid 1 MG TAB PO SCH (08:05)
[2018-12-10] MEDS: Pravastatin Sodium 20 MG TAB PO SCH (08:05)
[2018-12-10] MEDS: Ubidecarenone 50 MG CAP PO SCH (08:06)
--- NOTE | 2018-12-10 10:31 | PDOC.PN ---
- Subjective Encounter Start Date: 12/10/18 Encounter Start Time: 10:00 -: old records requested/rev Patient seen and examined. No new complaints. No overnight events - Objective MAR Reviewed: Yes Vital Signs & Weight: Vital Signs (12 hours) Temp Pulse Resp Pulse Ox 12/10/18 08:32 94 L 12/10/18 08:30 103 H 16 99 12/10/18 07:52 93 L 12/10/18 07:10 98.2 F 12/10/18 04:00 98.3 F 12/10/18 00:00 98.7 F Weight Weight 243 lb 7 oz Most Recent Monitor Data Heart Rate from ECG 107 NIBP 156/90 NIBP BP-Mean 112 Respiration from ECG 25 SpO2 96 I&O: 12/09/18 12/10/18 12/11/18 06:59 06:59 06:59 Intake Total 2625 2900 Output Total 250 1175 300 Balance 2375 1725 -300 Result Diagrams: 12/08/18 04:36 12/08/18 04:36 Radiology Reviewed by me: Yes EKG Reviewed by me: Yes Phys Exam - Physical Examination Constitutional: NAD HEENT: PERRLA, moist MMs, sclera anicteric Neck: no JVD, supple Respiratory: no wheezing, no rales, no rhonchi Cardiovascular: RRR, no significant murmur, no rub Gastrointestinal: soft, non-tender, no distention, positive bowel sounds Musculoskeletal: no edema, pulses present Neurological: non-focal, normal sensation Lymphatic: no nodes Psychiatric: normal affect Skin: no rash, normal turgor Dx/Plan (1) Acute respiratory failure with hypoxia Code(s): J96.01 - ACUTE RESPIRATORY FAILURE WITH HYPOXIA Status: Acute Comment: (2) TARA (obstructive sleep apnea) Code(s): G47.33 - OBSTRUCTIVE SLEEP APNEA (ADULT) (PEDIATRIC) Status: Suspected (3) Right lower lobe pneumonia Code(s): J18.1 - LOBAR PNEUMONIA, UNSPECIFIED ORGANISM Status: Acute (4) Right ventricular dysfunction Code(s): I51.9 - HEART DISEASE, UNSPECIFIED Status: Acute (5) Sepsis with acute organ dysfunction Code(s): A41.9 - SEPSIS, UNSPECIFIED ORGANISM; R65.20 - SEVERE SEPSIS WITHOUT SEPTIC SHOCK Status: Acute (6) Type [address] elevation Code(s): I21.A1 - MYOCARDIAL INFARCTION TYPE 2 Status: Acute (7) UTI (urinary tract infection) Status: Acute (8) CKD (chronic kidney disease) stage 2, GFR 60-89 ml/min Code(s): N18.2 - CHRONIC KIDNEY DISEASE, STAGE 2 (MILD) Status: Chronic (9) GERD (gastroesophageal reflux disease) Code(s): K21.9 - GASTRO-ESOPHAGEAL REFLUX DISEASE WITHOUT ESOPHAGITIS Status: Chronic (10) HLD (hyperlipidemia) Code(s): E78.5 - HYPERLIPIDEMIA, UNSPECIFIED Status: Chronic (11) HTN (hypertension) Code(s): I10 - ESSENTIAL (PRIMARY) HYPERTENSION Status: Chronic (12) Morbid obesity with BMI of 40.0-44.9, adult Code(s): E66.01 - MORBID (SEVERE) OBESITY DUE TO EXCESS CALORIES; Z68.41 - BODY MASS INDEX (BMI) 40.0-44.9, ADULT Status: Chronic (13) Rheumatoid arthritis Code(s): M06.9 - RHEUMATOID ARTHRITIS, UNSPECIFIED Status: Chronic - Plan cont current plan of care, continue antibiotics * wean off oxygen as tolerated * continue levaquin * transfer to tele * medication reviewed as below * symptomatic treatment. Review of Systems - Review of Systems ENT: negative: Ear Pain, Ear Discharge, Nose Pain, Nose Discharge, Nose Congestion, Mouth Pain, Mouth Swelling, Throat Pain, Throat Swelling, Other Respiratory: negative: Cough, Dry, Shortness of Breath, Hemoptysis, SOB with Excertion, Pleuritic Pain, Sputum, Wheezing Cardiovascular: negative: chest pain, palpitations, orthopnea, paroxysmal nocturnal dyspnea, edema, light headedness, other Gastrointestinal: negative: Nausea, Vomiting, Abdominal Pain, Diarrhea, Constipation, Melena, Hematochezia, Other Genitourinary: negative: Dysuria, Frequency, Incontinence, Hematuria, Retention , Other Musculoskeletal: negative: Neck Pain, Shoulder Pain, Arm Pain, Back Pain, Hand Pain, Leg Pain, Foot Pain, Other - Medications/Allergies Allergies/Adverse Reactions: Allergies Allergy/AdvReac Type Severity Reaction Status Date / Time Penicillins Allergy Verified 02/10/18 18:02 Medications: Current Medications Hydrocodone Bitart/Acetaminophen ([place] 5/325) 1 tab PO Q4H PRN PRN Reason: Moderate Pain (4-6) Last Admin: 12/07/18 21:17 Dose: 1 tab Hydrocodone Bitart/Acetaminophen ([place] 5/325) 2 tab PO Q4H PRN PRN Reason: Severe Pain (7-10) Last Admin: 12/10/18 08:02 Dose: 2 tab Albuterol/Ipratropium (Duoneb) 3 ml NEB [id number] [facility] Last Admin: 12/10/18 08:30 Dose: 3 ml Artificial Tears (Tears Naturale) 2 drop EA EYE PRN PRN PRN Reason: Dry Eyes Aspirin (Ecotrin) 81 mg PO BID [facility] Last Admin: 12/10/18 08:04 Dose: 81 mg Bisacodyl (Dulcolax) 10 mg DE DAILYPRN PRN PRN Reason: Constipation Bupropion HCl (Wellbutrin Sr) 100 mg PO DAILY [facility] Last Admin: 12/10/18 08:04 Dose: 100 mg Coenzyme Q10 (Coenzyme Q10) 100 mg PO DAILY [facility] Last Admin: 12/10/18 08:06 Dose: 100 mg Cyanocobalamin (Vitamin B-12) 3,000 mcg PO DAILY [facility] Last Admin: 12/10/18 08:04 Dose: 3,000 mcg Cyclobenzaprine HCl (Flexeril) 10 mg PO HS [facility] Last Admin: 12/09/18 21:16 Dose: 10 mg Diphenhydramine HCl (Benadryl) 25 mg PO DAILY PRN PRN Reason: Allergies Enoxaparin Sodium (Lovenox) 40 mg SC 0900 [facility] Last Admin: 12/10/18 08:04 Dose: 40 mg Escitalopram Oxalate (Lexapro) 10 mg PO DAILY [facility] Last Admin: 12/10/18 08:05 Dose: 10 mg Famotidine (Pepcid) 20 mg PO BID [facility] Last Admin: 12/10/18 08:05 Dose: 20 mg Folic Acid (Folvite) 1 mg PO DAILY [facility] Last Admin: 12/10/18 08:05 Dose: 1 mg Gabapentin (Neurontin) 600 mg PO TID [facility] Last Admin: 12/10/18 08:05 Dose: 600 mg Guaifenesin (Robitussin Sf) 200 mg PO Q4H PRN PRN Reason: Cough Hydralazine HCl (Apresoline) 10 mg SLOW IVP Q4H PRN PRN Reason: SBP > 180 and HR < 70 Levofloxacin 500 mg/ Device 100 mls @ 100 mls/hr IVPB 1200 [facility] Last Admin: 12/09/18 12:27 Dose: 100 mls Levothyroxine Sodium (Synthroid) 25 mcg PO 0600 [facility] Last Admin: 12/10/18 06:01 Dose: 25 mcg Loperamide HCl (Imodium) 2 mg PO PRN PRN PRN Reason: Diarrhea/Loose Stools Melatonin (Melatonin) 6 mg PO HS [facility] Last Admin: 12/09/18 21:15 Dose: 6 mg Mineral Oil/White Petrolatum (Eucerin Cream) 0 gm TOP BIDPRN PRN PRN Reason: Dry Skin Pravastatin Sodium (Pravachol) 10 mg PO DAILY [facility] Last Admin: 12/10/18 08:05 Dose: 10 mg Senna/Docusate Sodium (Senokot S) 2 tab PO BID PRN PRN Reason: Constipation Sodium Chloride ([place] Nasal [place] 0.65%) 0 ml EA NARE QIDPRN PRN PRN Reason: Nasal Congestion Throat Lozenges (Cepastat Lozenges) 1 jaimee PO Q2H PRN PRN Reason: Sore Throat Trazodone HCl (Desyrel) 50 mg PO HS [facility] Last Admin: 12/09/18 21:16 Dose: 50 mg Vitamin E (Vitamin E) 400 units PO DAILY [facility] Last Admin: 12/09/18 12:27 Dose: 400 units
--- NOTE | 2018-12-10 11:27 | PRG ---
DATE OF SERVICE: 12/10/2018 SUBJECTIVE: She is better, less cough, and less shortness of breath. She had an echo done yesterday, which shows dilated right ventricle, EF was 50% to 55%. She remains afebrile. OBJECTIVE: VITAL SIGNS: Saturations are 94 on 1 L, pulse 103, blood pressure 156/90, respiratory rate 18. CHEST: Bilateral crackles. CARDIAC: Normal S1 and S2. No gallops. ABDOMEN: No masses. IMPRESSION: Pneumonia and morbid obesity. PLAN: Continue antibiotics, neb treatments, supportive care. We will follow. Job ID: [id number]
--- NOTE | 2018-12-10 12:47 | PDOC.CTH ---
Cardiology Progress Note - Subjective . seen and eval. by me. No new complaints. Feels overall better. still some coughing. - Objective Vital Signs Temp Pulse Resp Pulse Ox 12/10/18 11:16 94 20 93 L 12/10/18 10:36 98.8 F 12/10/18 08:32 94 L 12/10/18 08:30 103 H 16 99 12/10/18 07:52 93 L 12/10/18 07:10 98.2 F 12/10/18 04:00 98.3 F Weight 243 lb 7 oz 12/09/18 12/10/18 12/11/18 06:59 06:59 06:59 Intake Total 2625 2900 Output Total 250 1175 300 Balance 2375 1725 -300 - Physical Examination General/Neuro: alert & oriented x3 Neck: no JVD present Lungs: other: (few righrt basilar rales.) Heart: RRR Abdomen: NT/ND, soft - Labs Result Diagrams: 12/08/18 04:36 12/08/18 04:36 Troponin/CKMB CK-MB (CK-2) 1.0 ng/mL (0-6.6) 12/07/18 10:49 Troponin I 0.074 ng/mL (< 0.028) H 12/07/18 20:45 - Assessment/Plan 1. RLL pnuemonia. Improving with antibiotics. 2. RV dysfunction likely from TARA and pneumonia 3. TARA 4. HTN 5. Likely demand ischemia from pneumonia. Feels much better. Likely was volume overloaded. Continue mild diuresis.
[2018-12-10] MEDS: traZODone HCl 50 MG TAB PO SCH (20:15)
[2018-12-10] MEDS: Melatonin 3 MG TAB PO SCH (20:15)
[2018-12-10] MEDS: Cyclobenzaprine 10 MG TAB PO SCH (20:17)
[2018-12-11] MEDS: Levothyroxine Sodium 25 MCG TAB PO SCH (05:59)
[2018-12-11] MEDS: Cyanocobalamin (Vitamin B-12) 1,000 MCG TAB PO SCH (07:53)
[2018-12-11] MEDS: Aspirin 81 mg Enteric Coated Tablet PO SCH (07:53)
[2018-12-11] MEDS: Bupropion 100 MG SR TAB PO SCH (07:53)
[2018-12-11] MEDS: Enoxaparin Sodium 40 MG/0.4 ML SYRINGE SC SCH (07:54)
[2018-12-11] MEDS: HYDROcodone/Acetaminophen 5/325 mg Tablet PO PRN ×2 (07:54→14:04)
[2018-12-11] MEDS: Famotidine 20 MG TAB PO SCH (07:55)
[2018-12-11] MEDS: Pravastatin Sodium 20 MG TAB PO SCH (07:55)
[2018-12-11] MEDS: Gabapentin 300 MG CAP PO SCH ×2 (07:55→14:04)
[2018-12-11] MEDS: Folic Acid 1 MG TAB PO SCH (07:55)
[2018-12-11] MEDS: Escitalopram Oxalate 10 mg Tablet PO SCH (07:55)
[2018-12-11] MEDS: Ubidecarenone 50 MG CAP PO SCH (07:56)
--- NOTE | 2018-12-11 08:12 | PDOC.PN ---
- Subjective Encounter Start Date: 12/11/18 Encounter Start Time: 07:50 Patient seen and examined. No new complaints. No overnight events - Objective MAR Reviewed: Yes Vital Signs & Weight: Vital Signs (12 hours) Temp Pulse Ox 12/11/18 07:23 97.6 F 12/11/18 07:07 94 L 12/11/18 04:00 97.6 F 12/11/18 00:00 97.7 F Weight Weight 243 lb 7 oz Most Recent Monitor Data Heart Rate from ECG 88 NIBP 147/83 NIBP BP-Mean 104 Respiration from ECG 15 SpO2 98 I&O: 12/10/18 12/11/18 12/12/18 06:59 06:59 06:59 Intake Total 2900 600 Output Total 1175 1000 Balance 1725 -400 Result Diagrams: 12/08/18 04:36 12/08/18 04:36 EKG Reviewed by me: Yes Phys Exam - Physical Examination Constitutional: NAD HEENT: PERRLA, moist MMs, sclera anicteric Neck: no JVD, supple Respiratory: no wheezing, no rales, no rhonchi Cardiovascular: RRR, no significant murmur, no rub Gastrointestinal: soft, non-tender, no distention, positive bowel sounds Musculoskeletal: no edema, pulses present Neurological: non-focal, normal sensation Psychiatric: normal affect, A&O x 3 Skin: no rash, normal turgor Dx/Plan (1) Acute respiratory failure with hypoxia Code(s): J96.01 - ACUTE RESPIRATORY FAILURE WITH HYPOXIA Status: Acute Comment: (2) TARA (obstructive sleep apnea) Code(s): G47.33 - OBSTRUCTIVE SLEEP APNEA (ADULT) (PEDIATRIC) Status: Suspected (3) Right lower lobe pneumonia Code(s): J18.1 - LOBAR PNEUMONIA, UNSPECIFIED ORGANISM Status: Acute (4) Right ventricular dysfunction Code(s): I51.9 - HEART DISEASE, UNSPECIFIED Status: Acute (5) Sepsis with acute organ dysfunction Code(s): A41.9 - SEPSIS, UNSPECIFIED ORGANISM; R65.20 - SEVERE SEPSIS WITHOUT SEPTIC SHOCK Status: Acute (6) Type [address] elevation Code(s): I21.A1 - MYOCARDIAL INFARCTION TYPE 2 Status: Acute (7) UTI (urinary tract infection) Status: Acute (8) CKD (chronic kidney disease) stage 2, GFR 60-89 ml/min Code(s): N18.2 - CHRONIC KIDNEY DISEASE, STAGE 2 (MILD) Status: Chronic (9) GERD (gastroesophageal reflux disease) Code(s): K21.9 - GASTRO-ESOPHAGEAL REFLUX DISEASE WITHOUT ESOPHAGITIS Status: Chronic (10) HLD (hyperlipidemia) Code(s): E78.5 - HYPERLIPIDEMIA, UNSPECIFIED Status: Chronic (11) HTN (hypertension) Code(s): I10 - ESSENTIAL (PRIMARY) HYPERTENSION Status: Chronic (12) Morbid obesity with BMI of 40.0-44.9, adult Code(s): E66.01 - MORBID (SEVERE) OBESITY DUE TO EXCESS CALORIES; Z68.41 - BODY MASS INDEX (BMI) 40.0-44.9, ADULT Status: Chronic (13) Rheumatoid arthritis Code(s): M06.9 - RHEUMATOID ARTHRITIS, UNSPECIFIED Status: Chronic - Plan cont current plan of care, continue antibiotics * po levaquin, * add lasix PO * medication reviewed as below * symptomatic treatment * see discharge peggy. Review of Systems - Review of Systems ENT: negative: Ear Pain, Ear Discharge, Nose Pain, Nose Discharge, Nose Congestion, Mouth Pain, Mouth Swelling, Throat Pain, Throat Swelling, Other Respiratory: negative: Cough, Dry, Shortness of Breath, Hemoptysis, SOB with Excertion, Pleuritic Pain, Sputum, Wheezing Cardiovascular: negative: chest pain, palpitations, orthopnea, paroxysmal nocturnal dyspnea, edema, light headedness, other Gastrointestinal: negative: Nausea, Vomiting, Abdominal Pain, Diarrhea, Constipation, Melena, Hematochezia, Other Genitourinary: negative: Dysuria, Frequency, Incontinence, Hematuria, Retention , Other Musculoskeletal: negative: Neck Pain, Shoulder Pain, Arm Pain, Back Pain, Hand Pain, Leg Pain, Foot Pain, Other Skin: negative: Rash, Lesions, Wing, Bruising, Other - Medications/Allergies Allergies/Adverse Reactions: Allergies Allergy/AdvReac Type Severity Reaction Status Date / Time Penicillins Allergy Verified 02/10/18 18:02 Medications: Current Medications Hydrocodone Bitart/Acetaminophen ([place] 5/325) 1 tab PO Q4H PRN PRN Reason: Moderate Pain (4-6) Last Admin: 12/07/18 21:17 Dose: 1 tab Hydrocodone Bitart/Acetaminophen ([place] 5/325) 2 tab PO Q4H PRN PRN Reason: Severe Pain (7-10) Last Admin: 12/11/18 07:54 Dose: 2 tab Albuterol/Ipratropium (Duoneb) 3 ml NEB [id number] [facility] Last Admin: 12/10/18 19:26 Dose: 3 ml Artificial Tears (Tears Naturale) 2 drop EA EYE PRN PRN PRN Reason: Dry Eyes Aspirin (Ecotrin) [address] [facility] Last Admin: 12/11/18 07:53 Dose: 81 mg Bisacodyl (Dulcolax) 10 mg ND DAILYPRN PRN PRN Reason: Constipation Bupropion HCl (Wellbutrin Sr) [address] [facility] Last Admin: 12/11/18 07:53 Dose: 100 mg Coenzyme Q10 (Coenzyme Q10) [address] [facility] Last Admin: 12/11/18 07:56 Dose: 100 mg Cyanocobalamin (Vitamin B-12) 3,[address] [facility] Last Admin: 12/11/18 07:53 Dose: 3,000 mcg Cyclobenzaprine HCl (Flexeril) [address] [facility] Last Admin: 12/10/18 20:17 Dose: 10 mg Diphenhydramine HCl (Benadryl) 25 mg PO DAILY PRN PRN Reason: Allergies Enoxaparin Sodium (Lovenox) [address] [facility] Last Admin: 12/11/18 07:54 Dose: 40 mg Escitalopram Oxalate (Lexapro) [address] [facility] Last Admin: 12/11/18 07:55 Dose: 10 mg Famotidine (Pepcid) [address] [facility] Last Admin: 12/11/18 07:55 Dose: 20 mg Folic Acid (Folvite) [address] [facility] Last Admin: 12/11/18 07:55 Dose: 1 mg Gabapentin (Neurontin) [address] [facility] Last Admin: 12/11/18 07:55 Dose: 600 mg Guaifenesin (Robitussin Sf) 200 mg PO Q4H PRN PRN Reason: Cough Hydralazine HCl (Apresoline) 10 mg SLOW IVP Q4H PRN PRN Reason: SBP > 180 and HR < 70 Levofloxacin 500 mg/ Device 100 mls @ 100 mls/hr IVPB 1200 [facility] Last Admin: 12/10/18 12:38 Dose: 100 mls Levothyroxine Sodium (Synthroid) [address] [facility] Last Admin: 12/11/18 05:59 Dose: 25 mcg Loperamide HCl (Imodium) 2 mg PO PRN PRN PRN Reason: Diarrhea/Loose Stools Melatonin (Melatonin) 6 mg PO [facility] Last Admin: 12/10/18 20:15 Dose: 6 mg Mineral Oil/White Petrolatum (Eucerin Cream) 0 gm TOP BIDPRN PRN PRN Reason: Dry Skin Pravastatin Sodium (Pravachol) [address] [facility] Last Admin: 12/11/18 07:55 Dose: 10 mg Senna/Docusate Sodium (Senokot S) 2 tab PO BID PRN PRN Reason: Constipation Sodium Chloride ([place] Nasal [place] 0.65%) 0 ml EA NARE QIDPRN PRN PRN Reason: Nasal Congestion Throat Lozenges (Cepastat Lozenges) 1 jaimee PO Q2H PRN PRN Reason: Sore Throat Trazodone HCl (Desyrel) 50 mg PO [facility] Last Admin: 12/10/18 20:15 Dose: 50 mg Vitamin E (Vitamin E) [address] [facility] Last Admin: 12/11/18 07:56 Dose: Not Given
--- NOTE | 2018-12-11 08:55 | DIS ---
DATE OF ADMISSION: 12/07/2018 DATE OF DISCHARGE: 12/11/2018 PRIMARY CARE PHYSICIAN: [facility] Call admission. DISCHARGE DISPOSITION: Home. PRIMARY DISCHARGE DIAGNOSES: Acute respiratory failure with hypoxia, resolved; right lower lobe pneumonia; right ventricular dysfunction; sepsis with acute organ dysfunction; type [address]-elevation; urinary tract infection. SECONDARY DISCHARGE DIAGNOSES: Rheumatoid arthritis; morbid obesity with BMI of 40; hypertension; dyslipidemia; gastroesophageal reflux disease; chronic kidney disease, stage 3. PRIMARY PROCEDURE/OPERATION: None. RADIOLOGICAL INVESTIGATION: Chest x-ray on admission showed bilateral lower lobe pneumonia. Echocardiography showed right ventricular dysfunction. SIGNIFICANT LABORATORY DATA: Hemoglobin 11.7, WBC 14.4, platelet 199. Sodium 139, potassium 3.5, BUN 11, creatinine 0.73. BNP 354. Troponin 0.074. TSH 0.67. Urinalysis suggestive of UTI. Blood culture negative. Urine culture negative. Influenza negative. DISCHARGE MEDICATIONS: 1. Bupropion ER 100 mg daily. 2. Vitamin D3 3000 units p.o. daily. 3. Flexeril 10 mg p.o. at bedtime. 4. Benadryl 25 mg p.o. daily p.r.n. 5. Lexapro 10 mg daily. 6. Fish oil 1000 mg p.o. daily. 7. Folic acid 1 mg daily. 8. Gabapentin 600 mg t.i.d. 9. Garlic 1000 mg p.o. daily. 10. [place] 10 mg one tablet t.i.d. p.r.n. 11. Multivitamin one tablet p.o. daily. 12. Levothyroxine 25 mcg p.o. daily. 13. Melatonin 5 mg p.o. at bedtime. 14. Omeprazole 40 mg p.o. daily. 15. Pravastatin 10 mg daily. 16. Trazodone 50 mg p.o. at bedtime. 17. Coenzyme Q10 100 mg p.o. daily. 18. Vitamin p.o. daily. 19. Ventolin inhaler 2 puffs q.6 hourly p.r.n. 20. Lasix 40 mg p.o. daily. 21. Levaquin 750 mg p.o. daily for 5 days. 22. Senokot 2 tablets p.o. daily. CONTRAINDICATION: None. CODE STATUS: Full code. INPATIENT AREA LOSS PREVENTION MANAGER: Dr. Gayle was consulted while in hospital. Dr. Mathew was following while in hospital. TEST RESULT PENDING ON DISCHARGE: None. ALLERGIES: PENICILLIN. DISCHARGE PLAN: Posthospital, the patient will follow up with primary care physician in 1 week. The patient will follow up with Cardiology and Pulmonary group as instructed. HOSPITAL COURSE: A 73-year-old female, who was admitted by Dr. Qureshi on December 07, 2018, please see his H and P for further details. The patient was admitted for increasing shortness of breath and cough. She was diagnosed with bilateral pneumonia. She was admitted to [facility] because she was having sepsis with acute organ dysfunction. She was also having acute respiratory failure with hypoxia. She was requiring oxygen. Her BNP was also elevated, and her troponin was also elevated. Echocardiography showed right ventricular dysfunction. She was treated with Lasix as well as empiric antibiotic therapy while in the hospital with levofloxacin. She had significant clinical improvement on discharge, we changed to p.o. Levaquin for another 5 more days and we added Lasix on her regimen. She will follow up with primary care physician, Cardiology and Pulmonary group as instructed. She required initially oxygen while in hospital, but by the time of discharge, she was not needing any oxygen anymore and if her oxygen level is normal, then we will consider discharging her later on today. All the medication prescription sent to her pharmacy. The patient is seen and examined at bedside today. Please see my progress note from today for further detail. The patient is medically stable for discharge today. Job ID: [id number]
[2018-12-11 10:27] VITALS: TEMP 97.5
--- NOTE | 2018-12-11 11:47 | PDOC.CTH ---
Cardiology Progress Note - Subjective Pt. seen and eval. by me. Feels much better. Ambulating in the room. No new events. - Objective Vital Signs Temp Pulse Resp Pulse Ox 12/11/18 10:27 97.5 F L 12/11/18 08:47 92 18 12/11/18 07:23 97.6 F 12/11/18 07:07 94 L 12/11/18 04:00 97.6 F 12/11/18 00:00 97.7 F Weight 243 lb 7 oz 12/10/18 12/11/18 12/12/18 06:59 06:59 06:59 Intake Total 2900 600 Output Total 1175 1000 Balance 1725 -400 - Physical Examination General/Neuro: alert & oriented x3 Neck: no JVD present Lungs: CTA Heart: RRR Abdomen: NT/ND, soft - Labs Result Diagrams: 12/08/18 04:36 12/08/18 04:36 Troponin/CKMB CK-MB (CK-2) 1.0 ng/mL (0-6.6) 12/07/18 10:49 Troponin I 0.074 ng/mL (< 0.028) H 12/07/18 20:45 - Assessment/Plan 1. RLL pnuemonia. Improving with antibiotics. 2. RV dysfunction likely from TARA and pneumonia 3. TARA 4. HTN 5. Likely demand ischemia from pneumonia. Feels much better. Likely was volume overloaded. Okay for discharge today.
--- NOTE | 2018-12-11 11:53 | PRG ---
DATE OF SERVICE: 12/11/2018 SUBJECTIVE: She is much better. OBJECTIVE: VITAL SIGNS: Saturations are 94% to 95% on room air, temperature 97, blood pressure 162/99. GENERAL: She is walking in the halls without any problems. CHEST: Decreased breath sounds. No wheezing. CARDIAC: Normal S1, S2. No gallops. ABDOMEN: No masses. IMPRESSION: 1. Respiratory failure. 2. Chronic obstructive pulmonary disease. 3. Pneumonia. She could be discharged home to be followed up with Dr. Mathew. Job ID: [id number]
== END 2018-12-11 16:09 | disposition home or self-care (01) | DRG 871 ==
LOC: SCSER 10:09 → ERHOLD 12:27 → IMCU/EMU 16:32
PROVIDERS: ADMIT Internal Medicine; ATTEND Internal Medicine
PROC: 5A09357 Assistance with Respiratory Ventilation, Less than 24 Consecutive Hours, Continuous Positive Airway Pressure (ICD-10-PCS; principal; 2018-12-09)
DX: A41.9 Sepsis, unspecified organism (principal); J96.01 Acute respiratory failure with hypoxia; J15.9 Unspecified bacterial pneumonia; I21.A1 Myocardial infarction type 2; Z68.41 Body mass index [BMI] 40.0-44.9, adult; N39.0 Urinary tract infection, site not specified; J44.0 Chronic obstructive pulmonary disease with (acute) lower respiratory infection; E78.5 Hyperlipidemia, unspecified; G62.9 Polyneuropathy, unspecified; E03.9 Hypothyroidism, unspecified; K21.9 Gastro-esophageal reflux disease without esophagitis; E87.70 Fluid overload, unspecified; J44.9 Chronic obstructive pulmonary disease, unspecified; G47.33 Obstructive sleep apnea (adult) (pediatric); E66.01 Morbid (severe) obesity due to excess calories; I51.89 Other ill-defined heart diseases; R65.20 Severe sepsis without septic shock; N18.2 Chronic kidney disease, stage 2 (mild); Z96.651 Presence of right artificial knee joint; M06.9 Rheumatoid arthritis, unspecified; I12.9 Hypertensive chronic kidney disease with stage 1 through stage 4 chronic kidney disease, or unspecified chronic kidney disease; Z87.01 Personal history of pneumonia (recurrent); Z90.89 Acquired absence of other organs; Z88.0 Allergy status to penicillin; Z79.899 Other long term (current) drug therapy
CPT/HCPCS: 36415; 71045; 80048; 80053; 81003; 81015; 82550; 82553; 83605; 83880; 84443; 84484; 85025; 87040; 87086; 87804; 93005; 93306; 94640; 94660; 94760; 96361; 96365; 96366; 96367; 96372; 96375; J0696; J1650; J1940; J1956; J2930; J3490; J7620

== ENCOUNTER 2019-08-01 09:16 | Outpatient (CLI) | payer MEDICARE ==
--- NOTE | 2019-08-01 09:57 | BD ---
EXAM: DEXA bone density examination HISTORY: 73-year-old postmenopausal female for screening COMPARISON: None FINDINGS: L1--bone mineral density 0.951 g/sq cm; T score -0.4 L2--bone mineral density 1.011 g/sq cm; T score -0.2 L3--bone mineral density 0.983 g/sq cm; T score -0.9 L4--bone mineral density 1.136 g/sq cm; T score 0.7 Total L1-L4--bone mineral density 1.024 g/sq cm; T score -0.2 Left femoral neck--bone mineral density0.652; T score -1.8 Total proximal left femur--bone mineral density 0.878; T score -0.5 IMPRESSION: Osteopenia
--- NOTE | 2019-08-01 10:20 | MMO ---
Bilateral MAMMO Bilat Screen DDI+ABDULAZIZ. CLINICAL HISTORY: Patient is 73 years old and is seen for screening. The patient has the following family history of breast cancer: paternal aunt. The patient has no personal history of cancer. The patient has a history of right Excisional Biopsy in 1983 - benign and right Excisional Biopsy in 1989 - benign. VIEWS: The views performed were: bilateral craniocaudal with tomosynthesis and bilateral mediolateral oblique with tomosynthesis. FILMS COMPARED: The present examination has been compared to prior imaging studies performed at [facility] on 01/21/2016 and 05/25/2017, and at [facility] on 12/15/2012 and 05/28/2014. This study has been interpreted with the assistance of computer-aided detection. MAMMOGRAM FINDINGS: There are scattered fibroglandular densities. There are vascular calcifications seen in both breasts. There are no suspicious masses, suspicious calcifications, or new areas of architectural distortion. IMPRESSION: A ROUTINE FOLLOW-UP MAMMOGRAM IN 1 YEAR IS RECOMMENDED. THE RESULTS OF THIS EXAM WERE SENT TO THE PATIENT. ACR BI-RADS Category 2 - Benign finding MAMMOGRAPHY NOTE: 1. A negative mammogram report should not delay a biopsy if a dominant of clinically suspicious mass is present. 2. Approximately 10% to 15% of breast cancers are not detected by mammography. 3. Adenosis and dense breasts may obscure an underlying neoplasm. Reported by: SHEELA VAUGHN MD Electonically Signed: [id number]
== END 2019-08-01 09:17 | disposition home or self-care (01) ==
LOC: BICMAMMO 09:16
PROVIDERS: ATTEND Family Medicine
DX: Z12.31 Encounter for screening mammogram for malignant neoplasm of breast (principal); M85.89 Other specified disorders of bone density and structure, multiple sites; Z80.3 Family history of malignant neoplasm of breast; Z91.89 Other specified personal risk factors, not elsewhere classified
CPT/HCPCS: 77063; 77067; 77080

== ENCOUNTER 2019-09-11 09:16 | Outpatient (CLI) | payer MEDICARE ==
--- NOTE | 2019-09-11 12:09 | MRI ---
MRI LEFT SHOULDER WITHOUT CONTRAST: Date: 09/11/2019 HISTORY: Osteoarthritis. History of left shoulder surgery. COMPARISON: None. FINDINGS: Biceps Tendon: Rupture of proximal intertrabecular groove. No normal interarticular tendon is apprec iated. Labrum: Circumferential labral tear and maceration. Rotator Cuff: High grade bursal surface tearing throughout the supraspinatus tendon, 50-60% thicknes s, with granulation and scar in situ. There is high grade undersurface partial tearing of subscapular is. Bones: There is severe articular surface remodeling of the humeral head, as well as the glenoid, wit h posterior decentering and abnormal retroversion, degenerative, of the glenoid. Large osteophyte for mation. Muscles: No significant muscle atrophy. Soft Tissues: Small to moderate joint effusion with synovitis and debris within the axillary pouch. Small subacromial/subdeltoid bursal effusion. Cartilage: Complete chondrolysis of the humeral head, as well as of the glenoid. IMPRESSION: 1. 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 2. High grade (50-60%) bursal surface tearing throughout the supraspinatus, with granulation and sca r in situ. No significant muscle trophy. 3. Moderate tendinosis of the subscapularis and infraspinatus tendons. 4. 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 POS: [facility]
== END 2019-09-11 09:17 | disposition home or self-care (01) ==
LOC: SCSMRI 09:16
PROVIDERS: ATTEND Orthopaedic Surgery
DX: M19.012 Primary osteoarthritis, left shoulder (principal); M75.102 Unspecified rotator cuff tear or rupture of left shoulder, not specified as traumatic; M77.9 Enthesopathy, unspecified; M65.812 Other synovitis and tenosynovitis, left shoulder; D48.0 Neoplasm of uncertain behavior of bone and articular cartilage

== ENCOUNTER 2020-01-16 06:10 | Outpatient (CLI) | payer MEDICARE, OTHER ==
--- NOTE | 2020-01-16 10:54 | RAD ---
PA AND LATERAL VIEWS CHEST: Date: 01/16/2020 HISTORY: Preoperative evaluation. FINDINGS: Comparison made with exam of 01/06/2019. The heart size is normal. The aorta is tortuous. The lungs are expanded without lobar consolidation, pneumothoraces, or pleural effusions. There are degenerative changes in the spine. IMPRESSION: No acute process. POS: [facility]
[2020-01-16 11:17] LABS: Anion Gap 13 mmol/L (10-20); BUN (Urea Nitrogen) 11 mg/dL (9.8-20.1); Calc. Creatinine Clearance 0 mL/min (70-130); Calcium 9.1 mg/dL (7.8-10.44); Carbon Dioxide 29 mmol/L (23-31); Chloride 100 mmol/L (98-107); Estimated GFR-MDRD 67; Glucose 94 mg/dL (83-110); Potassium 4.1 mmol/L (3.5-5.1); Sodium 138 mmol/L (136-145)
[2020-01-16 11:24] LABS: Bacteria/HPF 2+ HPF (None Seen); Blood, Urine Negative (Negative); Clarity Clear (Clear); Glucose, Urine (Dipstick) Normal (Negative); Protein, Urine (Dipstick) 10 mg/dL (Neg-Trace); RBC/HPF 0-3 HPF (0-3); Renal Epithelial 0-3 HPF (None Seen); Squamous Epithelial 0-3 HPF (0-3); Transitional Epithelial 0-3 HPF (None Seen)
[2020-01-16 11:25] LABS: #Basophils 0.1 thou/uL (0.0-0.2); #Eosinphils 0.6 thou/uL (0.0-0.7); #Monocytes 0.9 thou/uL (0.11-0.59); #Neutrophils 6.8 thou/uL (1.40-6.50); %Basophils 0.5 % (0.0-1.0); %Eosinophils 6.2 % (0.0-10.0); %Lymphocytes 19.4 % (21.0-51.0); %Monocytes 8.5 % (0.0-10.0); %Neutrophils 65.4 % (42.0-75.0); Hemoglobin 12.3 g/dL (12.0-16.0); Leukocyte Small Leu/uL (Negative); Mean Corpuscular HGB CONC 31.7 g/dL (32.0-36.0); Mean Corpuscular Volume 94.8 fL (78.0-98.0); Nitrite Unable to Interpret (Negative); Platelet Count 281 thou/uL (130-400); RBC Distribution Width 13.8 % (11.5-14.5); Red Blood Cell (RBC) Count 4.08 mill/uL (4.20-5.40); Urobilinogen UNABLE TO INTERPRET mg/dL (Less than 2); White Blood Cell (WBC) Count 10.4 thou/uL (4.8-10.8)
[2020-01-16 11:26] LABS: Bilirubin Unable to Interpret (Negative)
[2020-01-16 18:41] LABS: SARS-CoV-2 MS2 Positive; SARS-CoV-2 N Gene Negative; SARS-CoV-2 S Gene Negative; SARS-CoV-2 orf1ab Negative
--- NOTE | 2020-01-16 21:09 | EKG ---
Test Reason : Blood Pressure : / mmHG Vent. Rate : 081 BPM Atrial Rate : 081 BPM P-R Int : 138 ms QRS Dur : 110 ms QT Int : 392 ms P-R-T Axes : 061 -21 026 degrees QTc Int : 455 ms Normal sinus rhythm Moderate voltage criteria for LVH, may be normal variant Borderline ECG When compared with ECG of 07-DEC-2018 10:41, No significant change was found Confirmed by Hossein MORENO ([id number]) on 01/16/2020 9:09:27 PM Referred By: VIANEY Confirmed By:Hossein MORENO
== END 2020-01-16 06:11 | disposition home or self-care (01) ==
LOC: LABBT 06:10
PROVIDERS: ATTEND Orthopaedic Surgery
DX: Z01.818 Encounter for other preprocedural examination (principal); M75.102 Unspecified rotator cuff tear or rupture of left shoulder, not specified as traumatic; M19.012 Primary osteoarthritis, left shoulder; Z11.59 Encounter for screening for other viral diseases
CPT/HCPCS: 71046; 80048; 81001; 85025; 87081; 93005; U0003; 87635; 93010

== ENCOUNTER 2020-09-24 09:12 | Outpatient (CLI) | payer MEDICARE ==
--- NOTE | 2020-09-24 10:54 | MMO ---
Bilateral MAMMO Bilat Screen [facility]. CLINICAL HISTORY: Patient is 75 years old and is seen for screening. The patient has the following family history of breast cancer: paternal aunt. The patient has no personal history of cancer. The patient has a history of right Excisional Biopsy in 1983 - benign and right Excisional Biopsy in 1989 - benign. VIEWS: The views performed were: bilateral craniocaudal with tomosynthesis and bilateral mediolateral oblique with tomosynthesis. FILMS COMPARED: The present examination has been compared to prior imaging studies performed at [facility] on 01/21/2016, 05/25/2017 and 08/01/2019, and at [facility] on 05/28/2014. This study has been interpreted with the assistance of computer-aided detection. MAMMOGRAM FINDINGS: There are scattered fibroglandular densities. There are stable benign appearing calcifications seen in both breasts. There are no suspicious masses, suspicious calcifications, or new areas of architectural distortion. IMPRESSION: THERE IS NO MAMMOGRAPHIC EVIDENCE OF MALIGNANCY. A ROUTINE FOLLOW-UP MAMMOGRAM IN 1 YEAR IS RECOMMENDED. THE RESULTS OF THIS EXAM WERE SENT TO THE PATIENT. ACR BI-RADS Category 2 - Benign finding MAMMOGRAPHY NOTE: 1. A negative mammogram report should not delay a biopsy if a dominant of clinically suspicious mass is present. 2. Approximately 10% to 15% of breast cancers are not detected by mammography. 3. Adenosis and dense breasts may obscure an underlying neoplasm. Reported by: BASILIA FARR MD Electonically Signed: [id number]
== END 2020-09-24 09:13 | disposition home or self-care (01) ==
LOC: BICMAMMO 09:12
PROVIDERS: ATTEND Family Medicine
DX: Z12.31 Encounter for screening mammogram for malignant neoplasm of breast (principal); Z80.3 Family history of malignant neoplasm of breast; Z91.89 Other specified personal risk factors, not elsewhere classified
CPT/HCPCS: 77063; 77067

== ENCOUNTER 2022-10-27 09:21 | Outpatient (CLI) | payer MEDICARE | END 2022-10-27 09:22 | disposition home or self-care (01) | LOC: BICMAMMO 09:21 | PROVIDERS: ATTEND Family Medicine | DX: Z12.31 Encounter for screening mammogram for malignant neoplasm of breast (principal); Z80.3 Family history of malignant neoplasm of breast; Z91.89 Other specified personal risk factors, not elsewhere classified | CPT/HCPCS: 77063; 77067 ==

== ENCOUNTER 2023-03-29 07:54 | Outpatient (CLI) | payer MEDICARE | END 2023-03-29 07:55 | disposition home or self-care (01) | LOC: SCSMRI 07:54 | PROVIDERS: ATTEND Specialist | DX: M54.12 Radiculopathy, cervical region (principal); M48.02 Spinal stenosis, cervical region | CPT/HCPCS: 72141 ==

== ENCOUNTER 2023-11-03 10:45 | Outpatient (CLI) | payer MEDICARE | END 2023-11-03 10:46 | disposition home or self-care (01) | LOC: BICMAMMO 10:45 | PROVIDERS: ATTEND Family Medicine | DX: Z12.31 Encounter for screening mammogram for malignant neoplasm of breast (principal); Z80.3 Family history of malignant neoplasm of breast; Z91.89 Other specified personal risk factors, not elsewhere classified | CPT/HCPCS: 77063; 77067 ==

== ENCOUNTER 2024-09-14 08:59 | Outpatient (CLI) | payer OTHER | END 2024-09-14 09:00 | disposition home or self-care (01) | LOC: CT 08:59 | PROVIDERS: ATTEND Orthopaedic Surgery | DX: Z47.1 Aftercare following joint replacement surgery (principal); Z96.612 Presence of left artificial shoulder joint; M19.012 Primary osteoarthritis, left shoulder ==